=== PATIENT | female | born 1955 | race Caucasian/White ===

== ENCOUNTER 2018-12-06 14:40 | Inpatient (IN) ==
[2018-12-06] MEDS ORDERED: 0.9 % Sodium Chloride 1,000 ML IVC SCH ×2 (23:30→23:57)
--- NOTE | 2018-12-06 23:56 | Internal Med History&Physical ---
Date of Encounter: 12/06/18 Time of Encounter: 23:21 Internal Medicine - H&P: HPI Chief complaint: LE weakness History of present illness: Ms. Burris is a 63 year old female with a past medical history of diabetes, diabetic neuropathy hyperlipidemia and hypertension who initially presented to [facility] with complaints of lower extremity numbness and weakness. Patient states that her symptoms began on the 9 when she felt that she was coming down with something. She will that morning, felt a little off balance and throughout the course of the day and into the following day had 4 episodes of nonbloody nonbilious emesis. She had one episode of loose stools. Since then she reports episodes of feeling lightheaded whenever she would arise. On one episode when she stood up to go to the restroom at a restaurant, she states she felt as if her legs were wobbly and that she did not have full control. She also noted numbness in them well. She had a similar presentation yesterday in which she felt unsteady on her feet and reported numbness in both lower extremities. She feels that her symptoms are aggravated the longer she stands on her feet. Today she reports that she went to get a haircut and after getting up from the chair felt very weak and was uncertain she was able to make it to her car. After she arrived home she called her doctor and [place] who advised her to come into the ED. Patient also feels that she is having difficulty finding words and perioral numbness. Patient denies any headache, blurring vision, fever, chills, chest pain, shortness of breath, abdominal pain. Patient initially presented to [facility] where she was evaluated. Laboratory workup was notable for an elevated hemoglobin and hematocrit, normal white count, normal chemistry and UA. Patient was given 1 mg of lorazepam IV which seemed to help her anxiety. On my assessment patient was lying in bed in no acute distress. She did seem anxious. She continued to complain of lower extremity numbness from her knees down to her feet. No other focal deficits appreciated. Past Med Surg Social Fam HX - Past Medical History Medical history: diabetes, hyperlipidemia, hypertension, other Additional medical history: Elevated LFT's, Elevated ferritin, breast lump, Low potassium, gallstones, gout. Psychiatric history: depression - Past Surgical History Surgical History: hysterectomy, orthopedic, other Additional surgical history: right great toe amputation 2018. right foot hematoma 2018. - Social History Smoking Status: Former smoker Smokeless Tobacco Status: No Alcohol use: none Drug use: none - Family History Brother Adopted: No Family Member Ethnicity: Non- Living Status: Age at : 76 Cause of : kidney failure Hx Family Cardiac Disorders: Yes Hx Family Respiratory Disorders: No Hx Family Cancer: No Hx Family GI Disorders: No Hx Family Genitourinary Disorders: Yes Hx Family Endocrine Disorder: Yes ([place] 2 DM) Hx Family Musculoskeletal Disorders: No Hx Family Neuromuscular Disorders: No Hx Family Neurologic Disorders: No Hx Family HEENT Disorders: No Hx Family Autoimmune Disorders: No Hx Family Reproductive Disorders: No Hx Family Psychosocial Disorders: No Father Adopted: No Family Member Ethnicity: Non- Living Status: Age at : 36 Cause of : myeloma Hx Family Cardiac Disorders: No Hx Family Respiratory Disorders: No Hx Family Cancer: Yes Hx Family GI Disorders: No Hx Family Genitourinary Disorders: No Hx Family Endocrine Disorder: No Hx Family Musculoskeletal Disorders: No Hx Family Neuromuscular Disorders: No Hx Family Neurologic Disorders: No Hx Family HEENT Disorders: No Hx Family Autoimmune Disorders: No Hx Family Reproductive Disorders: No Hx Family Psychosocial Disorders: No Mother Living Status: Age at : 70 Cause of : "scliosiscolongitis" Hx Family Cardiac Disorders: No Hx Family Respiratory Disorders: No Hx Family Cancer: No Hx Family GI Disorders: Yes Hx Family Genitourinary Disorders: No Hx Family Endocrine Disorder: No Hx Family Musculoskeletal Disorders: No Hx Family Neuromuscular Disorders: No Hx Family Neurologic Disorders: No Hx Family HEENT Disorders: No Hx Family Autoimmune Disorders: No Hx Family Reproductive Disorders: No Hx Family Psychosocial Disorders: No Internal Medicine - H&P: Meds FLUoxetine HCl [Prozac] 80 mg PO DAILY 08/29/16 [History] metFORMIN [Glucophage] 500 mg PO BIDWM 08/29/16 [History] Furosemide [Lasix] 20 mg PO DAILY 02/10/18 [History] Glimepiride [Amaryl] 4 mg PO DAILY 02/10/18 [History] lamoTRIgine [Lamictal] 150 mg PO BID 02/10/18 [History] Fluticasone Propionate Nasal [Flonase] 2 spray NS DAILY PRN 07/20/18 [History] Loratadine [Claritin] 10 mg PO DAILY 07/20/18 [History] Montelukast [Singulair] 10 mg PO DAILY 07/20/18 [History] Bupropion HCl [Wellbutrin Xl] 300 mg PO DAILY 07/28/18 [History] Quetiapine Fumarate [Seroquel] 200 mg PO HS 08/03/18 [History] Acetaminophen [Tylenol] 1,000 mg PO Q6HR PRN tablet 08/12/18 [Rx] Losartan [Cozaar] 25 mg PO DAILY tablet 08/12/18 [Rx] Simvastatin [Zocor] 20 mg PO HS tablet 08/12/18 [Rx] Buspirone HCl [Buspar] 30 mg PO BID 08/13/18 [History] Gabapentin [Neurontin] 300 mg PO HS capsule 08/13/18 [Rx] Meclizine HCl [Verticalm] 25 mg PO TID PRN 08/13/18 [History] Omeprazole [PriLOSEC] 40 mg PO DAILY 08/13/18 [History] clonazePAM [Clonazepam] 2 mg PO TID 08/13/18 [History] Allopurinol [Zyloprim 100 MG] 100 mg PO DAILY 12/06/18 [History] Allergy/AdvReac Type Severity Reaction Status Date / Time codeine Allergy Rash Verified 12/06/18 12:10 fentanyl AdvReac Nausea Verified 12/06/18 12:10 All Systems PM: A 10-system review of systems was performed and is negative for pertinent findings except as documented above in the HPI. - Constitutional Constitutional: no chills, no fever(s), no night sweats - EENT Eyes: no change in vision, no discharge, no pain, no photophobia Ears: no ear discharge, no ear pain, no tinnitus Nose, mouth and throat: no dysphagia, no nasal discharge, no neck pain, no sore throat - Cardiovascular Cardiovascular ROS IM: no chest pain, no diaphoresis, no dyspnea, no lightheadedness, no palpitations, no syncope - Respiratory Respiratory: no cough, no dyspnea, no wheezing, no excessive phlegm production - Gastrointestinal Gastrointestinal: no abdominal pain, no diarrhea, no hematemesis, no hematochezia, no melena, no nausea, no vomiting - Genitourinary Genitourinary: no change in urinary stream, no dysuria, no flank pain, no hematuria - Musculoskeletal Musculoskeletal ROS IM: no numbness, no tingling - Integumentary Integumentary IM: no rash, no unusual bruising - Neurological Neurological ROS: no confusion, no convulsions, no focal weakness, no numbness, no tingling, no tremor(s) - Hematologic/Lymphatic Hematologic/Lymphatic: no easy bruising - Constitutional Vitals: Temp Pulse Resp BP Pulse Ox 98.1 F 76 17 123/73 96 12/06/18 23:11 12/06/18 23:11 12/06/18 23:11 12/06/18 23:11 12/06/18 23:11 Exam: General: Alert and oriented 3 lying in bed in no acute distress Skin:Normal color, no rash, no lesions. HEENT:EOM, pupils equal, round and reactive. Cardiovascular:Normal S1 & S2, no rubs, murmurs or gallops. No JVD. Pulse regular. Lungs:Normal breath sounds, no wheezes or crackles. Abdomen:Soft, non-tender, no rigidity. Extremities:No deformity, no edema or tenderness, no joint swelling or clubbing. Amputation of the right first toe. Mild edema of the second toe. Neurological:Normal cognition ; cranial nerves II through XII intact. 4 out of 5 muscle strength in lower extremities; 5 out of 5 in the upper extremities; no evidence of pronator drift. Decreased sensation in the lower extremities below the knees; hyperreflexic Pulses:Carotid and radial pulses normal +2. Rest of the physical exam is non contributory Internal Med - H&P Results - Labs CBC & Chem 7: 12/07/18 04:00 - Assessment and Plan (1) Leg weakness, bilateral Current Visit: No Status: Acute Assessment and plan: Patient reports of lower extremity weakness and unsteady gait. She has 4 out of 5 muscle strength in the lower extremities. Deep tendon reflexes hypereflexic No other focal deficits on physical examination. Patient has a history of isidra betic neuropathy. This may just be a progression of disease the patient states that her blood sugars have been stable. Differential also includes transverse myelitis [place] among others the patient as noted above is hyperreflexic. -We will obtain MRI of the brain and spine. -We will give 1 time stress dose steroids for Transversmyelitis -Neurology Consult. (2) Word finding difficulty Current Visit: Yes Status: Acute Assessment and plan: Patient reports word finding difficulties. Cranial nerves II through XII intact. Etiology unclear. Concern for CVA/TIA. May simply be secondary to anx iety. -We will allow for permissive hypertension in the event this is a stroke. -Neuro checks -We will obtain MRI of the brain in the morning -Echocardiogram/ carotid duplex -Appreciate neurology input (3) Diabetic foot Current Visit: No Status: Acute Assessment and plan: Swelling of the 2nd digit noted. No erythema. Patient was to have follow up appointment with her [employer] tomorrow. -We will obtain x-ray of the foot -Will obtain Podiatry Consult (4) Diabetes mellitus Current Visit: No Status: Chronic Assessment and plan: Blood Glucose checks; Sliding scale insulin Qualifiers: Diabetes mellitus type: type 2 Diabetes mellitus complication detail: with foot ulcer Qualified Code(s): E11.621 - Type 2 diabetes mellitus with foot ulcer; L97.509 - Non-pressure chronic ulcer of other part of unspecified foot with unspecified severity; Z79.4 - correction (current) use of insulin (5) DVT prophylaxis Current Visit: Yes Status: Acute Assessment and plan: Subcutaneous heparin - Time Spent With Patient Total time spent is greater than 50% in coordination of care (as documented) at patient's floor/unit and/or counseling patient:
[2018-12-07] MEDS ORDERED: Fluticasone Propionate Nasal 50 MCG/SPRAY BOTTLE NS PRN (00:02)
[2018-12-07] MEDS ORDERED: *HR* Dextrose 50 % in Water (Syg) 50 ML SYRINGE IVP PRN (00:04)
[2018-12-07] MEDS ORDERED: Dextrose Gel 15 GM/37.5 ML TUBE PO PRN ×2 (00:04)
[2018-12-07] MEDS ORDERED: D5% in Water 1,000 ML IVC PRN (00:04)
[2018-12-07] MEDS ORDERED: 0.9 % Sodium Chloride 500 ML IVC ONE (00:05)
[2018-12-07] MEDS: Insulin LISPRO 300 UNITS/3 ML VIAL SQ SCH ×4 (00:31→17:43)
[2018-12-07] MEDS: clonazePAM 1 MG TABLET PO SCH ×4 (00:41→20:20)
[2018-12-07] MEDS ORDERED: 0.9 % Sodium Chloride 1,000 ML IVC SCH (00:45)
[2018-12-07 00:51] LABS: Bilirubin,Urine Small (Negative); Blood,Urine Negative (Negative); Clarity,Urine Clear (Clear); Color,Urine Yellow (Yellow); Glucose,Urine (UA) Normal (Normal); Ketones,Urine Trace mg/dL (Negative); Leukocyte Esterase,Urine Small (Negative); Nitrite,Urine Negative (Negative); PH,Urine 6.5 pH Units (5.0-8.0); Protein,Urine Trace mg/dL (Neg-Trace); Specific Gravity,Urine 1.025 (1.010-1.025); Urobilinogen,Urine Normal (Normal)
[2018-12-07 00:53] LABS: Bacteria,Urine None Seen per hpf (None-Few); Hyaline Casts,Urine None Seen per lpf (None-Few); Squamous Epithelial Cell,Urine Many per lpf (None-Few)
[2018-12-07] MEDS: *HR* Heparin 5,000 UNIT/ML VIAL SQ SCH ×4 (01:37→21:57)
[2018-12-07] MEDS ORDERED: Naloxone 0.4 MG/ML INJ IVP PRN (03:24)
[2018-12-07 04:43] LABS: INR 1.3; Prothrombin Time 14.1 Seconds (9.4-12.1)
[2018-12-07 04:46] LABS: Activated Partial Thrombo Time 33.2 Seconds (26.0-36.0)
[2018-12-07 04:56] LABS: Alanine Aminotransferase 14 Units/L (7-52); Alkaline Phosphatase 48 Units/L (34-104); Aspartate Amino Transferase 13 Units/L (13-39); BUN/Creatinine Ratio 19 (6-26); Bilirubin,Total 0.6 mg/dL (0.3-1.0); Blood Urea Nitrogen 16 mg/dL (8-23); Calcium 9.3 mg/dL (8.6-10.3); Carbon Dioxide 26 mEq/L (23-29); Chloride 107 mEq/L (98-107); Chol/HDL Ratio 4.1 (0-4.9); Cholesterol 124 mg/dL (< 200); Glucose 88 mg/dL (70-105); HDL Cholesterol 30 mg/dL (40-59); LDL Cholesterol,Calculated 63 mg/dL (0-99); LDL Cholesterol,Direct 70 mg/dL (75-193); Osmolality,Calculated 297 (280-300); Sodium 143 mEq/L (136-145); Triglycerides 153 mg/dL (< 150); Troponin I < 0.03 ng/mL (< 0.04); eGFR For Non-African Americans > 60 (> 60)
[2018-12-07] MEDS ORDERED: Ondansetron 4 MG/2 ML VIAL IVP PRN (05:46)
[2018-12-07] MEDS ORDERED: Ondansetron 4 MG/2 ML VIAL IVP SCH (06:00)
[2018-12-07] MEDS ORDERED: Gadolinium Contrast Agent (WT Based) IV PRN (07:12)
[2018-12-07 07:25] LABS: Basophils % 0.5 %; Eosinophils # 0.2 K/mcL (0.0-0.6); Eosinophils % 2.3 %; Hematocrit 43.9 % (35.3-44.9); Hemoglobin 14.2 g/dL (11.5-15.4); Immature Granulocytes % 0.3 % (0-4); Lymphocytes # 3.5 K/mcL (0.6-4.6); Lymphocytes % 52.5 %; Mean Corpuscular HGB Conc 32.3 g/dL (31.6-35.5); Mean Corpuscular Hemoglobin 30.8 pg (28.0-33.3); Mean Corpuscular Volume 95.2 fL (83.0-100.0); Monocytes # 0.5 K/mcL (0.0-1.3); Monocytes % 7.3 %; Neutrophils # 2.4 K/mcL (1.6-8.9); Platelet Count 111 K/mcL (140-400); Red Blood Count 4.61 M/mcL (3.82-4.97); Red Cell Distribution Width 13.7 % (11.5-14.5); Segmented Neutrophils % 37.1 %
--- NOTE | 2018-12-07 08:56 | Neurology - Consult Note ---
<Familia Reyes - Last Filed: 12/07/18 15:19> Date of Encounter: 12/07/18 Time of Encounter: 09:50 Assessment and Plan (1) Leg weakness, bilateral Current Visit: Yes Status: Acute - Unclear etiology at this time - Leading differential at this time includes spinal cord compression, GBS, TIA - Also suspect that there is a large anxiety component potentially exacerbating symptoms. - Neuro exam reveal bilateral weakness with hyperreflexia and mildly decreased sensation below knees - Also known diabetic with right great toe amputation in July of 2018. Well healed. May be contributing to unsteady gait - Given 1 dose of stress dose steroids per H&P, however not observed on MAR - MRI of head, thoracic, lumbar spine ordered, pending-- preliminary results show no acute process in brain, stenosis of lumbar and thoracic spine with no evidence of myelitis. Plan - Will await results of MRI. Will order Cervical MRI as well. - Do not have urgent need for LP at this time - Another possibility is medication induced, patient is on multiple neurotransmitter regulating medications and early serotonin syndrome may also be a possibility. Recommend psychiatric consult to further evaluate. - Continue supportive care - Consider steroids, however avoid at this time as it may exacerbate her anxiety (2) Word finding difficulty Current Visit: Yes Status: Acute - Possible TIA vs anxiety - Symptoms have resolved at this time - MRI pending - Will continue to monitor and await MRI results (3) Diabetes mellitus Current Visit: Yes Status: Chronic - Very well controlled - A1c of 4.8% on this visit - S/p toe amputation - Unlikely but possible contribution to higher risk for TIA Qualifiers: Diabetes mellitus type: type 2 Diabetes mellitus engineer station mainline insulin use: without care home use Diabetes mellitus complication status: with skin complications Diabetes mellitus complication detail: with foot ulcer Qualified Code(s): E11.621 - Type 2 diabetes mellitus with foot ulcer; L97.509 - Non-pressure chronic ulcer of other part of unspecified foot with unspecified severity (4) Hypertension Current Visit: Yes Status: Chronic Chronic Currently 137/82 Recommend against starting antihypertensives at this time the setting of possible acute TIA Qualifiers: Hypertension type: essential hypertension Qualified Code(s): I10 - Essential (primary) hypertension (5) Anxiety Current Visit: Yes Status: Chronic - Patient reports poorly controlled anxiety which is exacerbated with this most recent health scare - Home medications including Wellbutrin, BuSpar, Prozac, Lamictal, clonazepam, Seroquel - Suspect that this may possibly contributing to some of her symptoms however will also have to rule out organic etiologies - Management as above and per primary team History of Present Illness Chief complaint: Bilateral lower extremity weakness, unsteadiness HPI: Ms. Burris is a 63 year old female with past medical history of diabetes, hyperlipidemia, hypertension who presented to the emergency room in [place] with a complaint of bilateral lower extremity weakness and numbness 4 days. Patient stated that on of last week she began to experience progressively onset and worsening lower extremity weakness and unsteadiness in her gait. She describes it as a "rubber band "feeling in both of her legs. She is never experienced symptoms like this in the past. She denies any upper ex tremity symptoms at this time. She does admit to associated numbness without any evidence of tingling or pain. She denies any trauma. She denies any symptoms of chest pains or difficulty breathing but does admit to feeling nauseated with multiple episodes of vomiting during this time. She has no other sick contacts. She is also noted some difficulty in her word finding starting on Thursday but denies any difficulty slurred speech to me this morning. She states that she is very anxious at this time as she has a lot of good things going on for her with her family and is very nervous about what the symptoms might mean. In the [place] emergency room, vital signs were initially significant for a blood pressure of 149/94, otherwise within normal limits. Laboratory results showed probable hemoconcentration with resolution after fluids. Lactic acid was mildly elevated at 3.4. Urinalysis was benign. Chest x-ray was obtained and showed no acute process. MRI of the head, thoracic and lumbar spine have been ordered and are pending as well as echocardiogram and carotid Dopplers. Neurology was consulted on 12/06/18 for concerns of bilateral lower extremity weakness. Today during interview, patient continues to experience weakness and states that her walking his, increasingly unsteady since onset. She continues to have difficulty with muscle weakness in her lower extremities. Also, she does become tearful during interview with anxiety about her health. Past Med Surg Social Fam HX - Past Medical History Medical history: diabetes, hyperlipidemia, hypertension, other Additional medical history: Elevated LFT's, Elevated ferritin, breast lump, Low potassium, gallstones, gout. Psychiatric history: depression - Past Surgical History Surgical History: hysterectomy, orthopedic, other Additional surgical history: right great toe amputation 2018. right foot hematoma 2018. - Social History Smoking Status: Former smoker Smokeless Tobacco Status: No Alcohol use: none Drug use: none - Family History Brother Adopted: No Family Member Ethnicity: Non- Living Status: Age at : 76 Cause of : kidney failure Hx Family Cardiac Disorders: Yes Hx Family Respiratory Disorders: No Hx Family Cancer: No Hx Family GI Disorders: No Hx Family Genitourinary Disorders: Yes Hx Family Endocrine Disorder: Yes (Trung 2 DM) Hx Family Musculoskeletal Disorders: No Hx Family Neuromuscular Disorders: No Hx Family Neurologic Disorders: No Hx Family HEENT Disorders: No Hx Family Autoimmune Disorders: No Hx Family Reproductive Disorders: No Hx Family Psychosocial Disorders: No Father Adopted: No Family Member Ethnicity: Non- Living Status: Age at : 36 Cause of : myeloma Hx Family Cardiac Disorders: No Hx Family Respiratory Disorders: No Hx Family Cancer: Yes Hx Family GI Disorders: No Hx Family Genitourinary Disorders: No Hx Family Endocrine Disorder: No Hx Family Musculoskeletal Disorders: No Hx Family Neuromuscular Disorders: No Hx Family Neurologic Disorders: No Hx Family HEENT Disorders: No Hx Family Autoimmune Disorders: No Hx Family Reproductive Disorders: No Hx Family Psychosocial Disorders: No Mother Living Status: Age at : 70 Cause of : "scliosiscolongitis" Hx Family Cardiac Disorders: No Hx Family Respiratory Disorders: No Hx Family Cancer: No Hx Family GI Disorders: Yes Hx Family Genitourinary Disorders: No Hx Family Endocrine Disorder: No Hx Family Musculoskeletal Disorders: No Hx Family Neuromuscular Disorders: No Hx Family Neurologic Disorders: No Hx Family HEENT Disorders: No Hx Family Autoimmune Disorders: No Hx Family Reproductive Disorders: No Hx Family Psychosocial Disorders: No Medications and Allergies FLUoxetine HCl [Prozac] 80 mg PO DAILY 08/29/16 [History] metFORMIN [Glucophage] 500 mg PO BIDWM 08/29/16 [History] Furosemide [Lasix] 20 mg PO DAILY 02/10/18 [History] Glimepiride [Amaryl] 4 mg PO DAILY 02/10/18 [History] lamoTRIgine [Lamictal] 150 mg PO BID 02/10/18 [History] Fluticasone Propionate Nasal [Flonase] 2 spray NS DAILY PRN 07/20/18 [History] Loratadine [Claritin] 10 mg PO DAILY 07/20/18 [History] Montelukast [Singulair] 10 mg PO DAILY 07/20/18 [History] Bupropion HCl [Wellbutrin Xl] 300 mg PO DAILY 07/28/18 [History] Quetiapine Fumarate [Seroquel] 200 mg PO HS 08/03/18 [History] Acetaminophen [Tylenol] 1,000 mg PO Q6HR PRN tablet 08/12/18 [Rx] Losartan [Cozaar] 25 mg PO DAILY tablet 08/12/18 [Rx] Simvastatin [Zocor] 20 mg PO HS tablet 08/12/18 [Rx] Buspirone HCl [Buspar] 30 mg PO BID 08/13/18 [History] Gabapentin [Neurontin] 300 mg PO HS capsule 08/13/18 [Rx] Meclizine HCl [Verticalm] 25 mg PO TID PRN 08/13/18 [History] Omeprazole [PriLOSEC] 40 mg PO DAILY 08/13/18 [History] clonazePAM [Clonazepam] 2 mg PO TID 08/13/18 [History] Allopurinol [Zyloprim 100 MG] 100 mg PO DAILY 12/06/18 [History] Allergy/AdvReac Type Severity Reaction Status Date / Time codeine Allergy Rash Verified 12/06/18 12:10 fentanyl AdvReac Nausea Verified 12/06/18 12:10 All Systems: The remainder of the systems were reviewed and are negative Review of Systems: - Constitutional: Denies fevers, chills, weight loss, generalized fatigue - Head/Neck: Denies LOCK, neck stiffness - EENT: Denies vision changes/blurriness, rhinorrhea, congestion, sore throat, odynaphagia - CVS: Denies chest pain, palpitations, NEVES, orthopnea, edema, PND, - Pulm: Denies SOB, cough, sputum, - GI: Admits to nausea, vomiting. Denies abdominal pain, anorexia, diarrhea, constipation, melena - : Denies dysuria, increased frequency, urgency, hematuria, - Skin: Denies rashes, ulcers, color changes, - Neuro: Admits to lower shortly weakness, numbness. Denies LOCK, paresthesias, ataxia, Physical Examination - Vital Signs Vital Signs: Initial Vital Signs Temp Pulse Resp BP Pulse Ox 98.2 F 80 17 135/75 96 12/06/18 20:04 12/06/18 20:04 12/06/18 20:04 12/06/18 20:04 12/06/18 20:04 - Constitutional General appearance: comfortable (anxious appearing) - Neurologic Sensorimotor examination: intact Motor examination - right side: 4/5: deltoids, biceps, triceps, senior report developer, tibialis Anterior, quadriceps, 5/5: plantarflexion Motor examination - left side: 4/5: deltoids, biceps, triceps, hip flexors, senior report developer, quadriceps, tibialis Anterior, 5/5: plantarflexion Detailed sensory examination: intact Reflexes: Biceps: 2+, Patella: 3+ Mental Status Examination: awake, alert, oriented to person, oriented to place, oriented to time, follows commands appropriately, answers questions appropriately Cranial nerve examination: PERRL, EOMI, sensory to face intact, mastication intact, no facial asymmetry is present, no dysarthria, hearing is intact symmetrically, soft palate elevates bilaterally upon phonation, flexes SCM and trapezius muscles symmetrically with full power, tongue protrudes midline, no atrophy or facial fasiculations present Cerebellar examination: performs finger to nose and heel to scott symmetrically without ataxia Results - Laboratory Findings CBC and BMP: 12/07/18 04:00 12/07/18 04:00 Abnormal lab findings: Abnormal lab results Plt Count 111 K/mcL (140-400) L 12/07/18 04:00 PT 14.1 Seconds (9.4-12.1) H 12/07/18 04:00 POC Glucose 108 mg/dL (70-99) H 12/07/18 00:20 Serum Total Protein 6.0 g/dL (6.4-8.9) L 12/07/18 04:00 Globulin 2.0 g/dL (2.4-3.5) L 12/07/18 04:00 Triglycerides 153 mg/dL (< 150) H 12/07/18 04:00 LDL Cholesterol Measurd 70 mg/dL (75-193) L 12/07/18 04:00 VLDL Cholesterol, Calc 31 mg/dL (< 31) H 12/07/18 04:00 HDL Cholesterol 30 mg/dL (40-59) L 12/07/18 04:00 Urine Ketones Trace mg/dL (Negative) H 12/07/18 00:28 Urine Bilirubin Small (Negative) H 12/07/18 00:28 Ur Leukocyte Esterase Small (Negative) H 12/07/18 00:28 Urine Microscopic RBC 3-5 per hpf (0-3) H 12/07/18 00:28 Urine Microscopic WBC 5-15 per hpf (0-3) H 12/07/18 00:28 Ur Squamous Epith Cells Many per lpf (None-Few) H 12/07/18 00:28 Consult Discharge Plan - Plan Referrals: Carlos Juares DPM [Partnered Physician] - 12/16/18 4:00 pm Kia Dunlap CNP [Primary Care Provider] - 12/16/18 4:00 pm () <Douglas Covington - Last Filed: 12/07/18 17:58> Date of Encounter: 12/07/18 Assessment and Plan (1) Leg weakness, bilateral Current Visit: Yes Status: Acute I have personally performed a [id number] assessment of the patient and have reviewed the PA/NAILHEAD SETTER note. My impressions are as follows: Aside from the hyperreflexia, patient's neurologic examination is essentially normal. MRI scan of the brain is negative therefore we are not dealing with an ischemic event or demyelination. I would like to rule out the possibility of a transverse myelitis in the cervical spine. However thoracic MRI was also negative. I believe the GBS is less of a concern primarily because the patient does have reflexes present. I do believe that there could possibly be an anxiety component. Particularly since she has normal strength in the nonfocal exam. She denies any pain. Further recommendations will be made after the cervical spine MRIs been completed. Patient is on a host of different mood stabilizers and I am concerned that perhaps there may be interactions amongst them that is resulting in this presentation or perhaps even the stabilization of her anxiety. I agree with psychiatric consultation. History of Present Illness HPI: The chart was reviewed, the patient was seen and examined independently. I have personally performed a [id number] assessment of the patient and have reviewed the PA/NAILHEAD SETTER note. My impressions are as follows: Ms. Burris is a 63 year old female who is seen for neurologic consultation secondary to complaints of bilateral lower extremity weakness. The case was discussed with the neurology resident. I agree with the history of present illness as presented above. All Systems: The remainder of the systems were reviewed and are negative Review of Systems: The balance of the systems review is negative. Physical Examination - Vital Signs Vital Signs: Initial Vital Signs Temp Pulse Resp BP Pulse Ox 98.2 F 80 17 135/75 96 12/06/18 20:04 12/06/18 20:04 12/06/18 20:04 12/06/18 20:04 12/06/18 20:04 - Exam Exam: General Examination: *CONSTITUTIONAL: normal *GENERAL APPEARANCE OF PATIENT appears healthy and well groomed *EYES: pupils equal, round, reactive to light and accommodation, conjunctiva clear without masses or ulcerations, fundi normal. *CARDIOVASCULAR no peripheral edema, distal temperature normal, dorsalis pedis pulses normal. Refer to vital signs Musculoskeletal: *GAIT AND STATION normal, with normal Romberg testing, no abnormalities such as broad base gait or spasticity *ASSESSMENT OF MUSCLE STRENGTH IN THE UPPER AND LOWER EXTREMITIES deltoid, bicep, tricep, senior report developer strength, hip flexors ,anterior tibialis, dorsoflexion of the foot normal. *MUSCLE TONE IN THE UPPER AND LOWER EXTREMITIES normal. No abnormal movements, fasciculations or atrophy identified. Neurological: *ORIENTATION to time and place *RECURRENT AND REMOTE MEMORY intact *ATTENTION AND CONCENTRATION are normal *LANGUAGE FUNCTION no significant aphasia or dysarthia was noted. *FUND OF KNOWLEDGE aware of current events, past history, vocabulary *MENTAL attention span and concentration normal. Patient does however seem to be very anxious. *CN II optic fundi were normal, no papilledema noted. *CN III,IV, PERRLA extraocular eye movements were full, no nystagmus and no ptosis noted. *CN V shows normal sensation and jaw opens symmetrically. *CN VII shows normal facial movement symmetrically, upper and lower bilaterally. *CN VIII shows no significant hearing loss on examination in the office. *CN IX,,X palate elevated symmetrically and normal gag reflex was noted. *CN XI normal strength in the sternocleidomastoid muscles, symmetrical shoulder shrugging. *CN XII tongue protruded in the midline, with normal strength and movement. *SENSORY EXAMINATION pinprick sensation intact, and light touch(vibration sense). *REFLEXES: deep tendon reflexes were increased throughout. 3/4 of both upper extremities in all reflexes, the right patellar reflex was 3+, the left patella reflexes cloniform. No Babinski or clonus are present. *CEREBELLAR TESTING normal finger to nose, heel/knee/scott *PAIN LEVEL -0 Results - Laboratory Findings CBC and BMP: 12/07/18 04:00 12/07/18 04:00 Abnormal lab findings: Abnormal lab results Plt Count 111 K/mcL (140-400) L 12/07/18 04:00 PT 14.1 Seconds (9.4-12.1) H 12/07/18 04:00 Serum Total Protein 6.0 g/dL (6.4-8.9) L 12/07/18 04:00 Globulin 2.0 g/dL (2.4-3.5) L 12/07/18 04:00 Triglycerides 153 mg/dL (< 150) H 12/07/18 04:00 LDL Cholesterol Measurd 70 mg/dL (75-193) L 12/07/18 04:00 VLDL Cholesterol, Calc 31 mg/dL (< 31) H 12/07/18 04:00 HDL Cholesterol 30 mg/dL (40-59) L 12/07/18 04:00 Urine Ketones Trace mg/dL (Negative) H 12/07/18 00:28 Urine Bilirubin Small (Negative) H 12/07/18 00:28 Ur Leukocyte Esterase Small (Negative) H 12/07/18 00:28 Urine Microscopic RBC 3-5 per hpf (0-3) H 12/07/18 00:28 Urine Microscopic WBC 5-15 per hpf (0-3) H 12/07/18 00:28 Ur Squamous Epith Cells Many per lpf (None-Few) H 12/07/18 00:28
[2018-12-07] MEDS: lamoTRIgine 100 MG TABLET PO SCH ×2 (09:14→20:19)
[2018-12-07] MEDS: FLUoxetine 20 MG CAPSULE PO SCH (09:15)
[2018-12-07 09:27] LABS: Estimated Average Glucose 91 mg/dl; Hemoglobin A1C 4.8 %
--- NOTE | 2018-12-07 13:21 | Internal Med Progress Note ---
Hospitalist Progress Note - Encounter Date of Encounter: 12/07/18 Time of Encounter: 13:20 - Subjective Interval History: Patient was seen and examined at bedside denies any pain or discomfort at this time. Discussed treatment plan the patient verbalized understanding - Exam Vitals: Temp Pulse Resp BP Pulse Ox 97.5 F L 80 16 145/87 95 12/07/18 11:53 12/07/18 11:53 12/07/18 11:53 12/07/18 11:53 12/07/18 11:53 Exam: General: Alert and oriented 3 lying in bed in no acute distress Skin:Normal color, no rash, no lesions. HEENT:EOM, pupils equal, round and reactive. Cardiovascular:Normal S1 & S2, no rubs, murmurs or gallops. No JVD. Pulse regular. Lungs:Normal breath sounds, no wheezes or crackles. Abdomen:Soft, non-tender, no rigidity. Extremities:No deformity, no edema or tenderness, no joint swelling or clubbing. Amputation of the right first toe. Mild edema of the second toe. Neurological:Normal cognition ; cranial nerves II through XII intact. 4 out of 5 muscle strength in lower extremities; 5 out of 5 in the upper extremities; no evidence of pronator drift. Decreased sensation in the lower extremities below the knees; hyperreflexic Pulses:Carotid and radial pulses normal +2. Rest of the physical exam is non contributory - Assessment and Plan (1) Diabetic foot Current Visit: No Status: Acute Assessment and Plan: Swelling of the right 2nd digit noted. No erythema. She did have great toe amputated and July and has been doing well she does not recall any injury Patient was to have follow up appointment with her Contract Specialist 12/07/2018 -We will obtain x-ray of the foot - Podiatry Consult as needed pending x-ray of foot (2) Diabetes mellitus Current Visit: Yes Status: Chronic Assessment and Plan: Blood Glucose checks; Sliding scale insulin (3) Leg weakness, bilateral Current Visit: Yes Status: Acute Assessment and Plan: Patient reports of lower extremity weakness and unsteady gait. She has 4 out of 5 muscle strength in the lower extremities. Deep tendon reflexes hypereflexic No other focal deficits on physical examination. Patient has a history of diabetic neuropathy. This may just be a progression of disease the patient states that her blood sugars have been stable. Differential also includes transverse myelitis [place] among others the patient as noted above is hyperreflexic Lumbar spine MRI IMPRESSION: 1. Mild spinal canal stenosis and mild right neural foraminal narrowing at L3-4 secondary to a disc bulge, facet arthropathy and thickening of the ligamentum flavum. 2. Mild to moderate bilateral neural foraminal narrowing at L4-5 and L5-S1, as described above. 3. No abnormal enhancement. Thoracic spine MRI IMPRESSION: Mild spinal canal stenosis at T7-8 secondary to a focal 2 mm central disc protrusion. Otherwise, unremarkable MRI of the thoracic spine Brain MRI IMPRESSION: No acute intracranial abnormality. Echo Impressions: LVEF 55-60%. Normal LV chamber size, wall thickness and function. Normal left ventricular diastolic function. Mildly dilated right ventricle with normal function. Poor quality agitated saline contrast study. No significant valvular dysfunction. No evidence of pulmonary hypertension. -Neurology Consult. PT/OT consult (4) Word finding difficulty Current Visit: Yes Status: Acute Assessment and Plan: Patient reports word finding difficulties. Cranial nerves II through XII intact. Etiology unclear. Concern for CVA/TIA. May simply be secondary to anxiety. -We will allow for permissive hypertension in the event this is a stroke. -Neuro checks -Brain MRI with no acute intracranial abnormalities -Echocardiogram/ carotid duplex Echo Impressions: LVEF 55-60%. Normal LV chamber size, wall thickness and function. Normal left ventricular diastolic function. Mildly dilated right ventricle with normal function. Poor quality agitated saline contrast study. No significant valvular dysfunction. No evidence of pulmonary hypertension. -Appreciate neurology input (5) DVT prophylaxis Current Visit: Yes Status: Acute Assessment and Plan: Subcutaneous heparin - Time Spent with Patient Total time spent is greater than 50% in coordination of care (as documented) at patient's floor/unit and/or counseling patient: Internal Medicine: Result - Labs CBC & Chem 7: 12/07/18 04:00 12/07/18 04:00 Labs: Short CBC 12/07/18 Range/Units 04:00 WBC 6.6 (4.3-11.1) K/mcL Hgb 14.2 D (11.5-15.4) g/dL Hct 43.9 (35.3-44.9) % Plt Count 111 L (140-400) K/mcL Neutrophils # 2.4 (1.6-8.9) K/mcL BMP 04/16/19 04:00 Sodium 143 Potassium 4.0 Chloride 107 Carbon Dioxide 26 BUN 16 Creatinine 0.85 Glucose 88 Calcium 9.3 Cardiac Enzymes 12/07/18 Range/Units 04:00 Troponin I < 0.03 (< 0.04) ng/mL Liver Function 12/07/18 Range/Units 04:00 Total Bilirubin 0.6 (0.3-1.0) mg/dL AST 13 (13-39) Units/L ALT 14 (7-52) Units/L Alkaline Phosphatase 48 (34-104) Units/L Albumin 4.0 (3.5-5.7) g/dL Urine 12/07/18 Range/Units 00:28 Urine Color Yellow (Yellow) Urine Clarity Clear (Clear) Urine pH 6.5 (5.0-8.0) pH Units Ur Specific Melvin 1.025 (1.010-1.025) Urine Protein Trace (Neg-Trace) mg/dL Urine Glucose (UA) Normal (Normal) mg/dL - ABG Interpretation ABG results: PT/INR, D-dimer PT 14.1 Seconds (9.4-12.1) H 12/07/18 04:00 - Impressions Impressions Brain MRI 12/07/18 07:12 IMPRESSION: No acute intracranial abnormality. D/ / Hawk Lemon MD / Hawk Lemon MD Interpreting Provider: Hawk Lemon MD Lumbar Spine MRI 12/07/18 07:12 IMPRESSION: 1. Mild spinal canal stenosis and mild right neural foraminal narrowing at L3-4 secondary to a disc bulge, facet arthropathy and thickening of the ligamentum flavum. 2. Mild to moderate bilateral neural foraminal narrowing at L4-5 and L5-S1, as described above. 3. No abnormal enhancement. D/ / 12/07/2018 11:42:19 Jake Heath MD / [facility] Interpreting Provider: Jake Heath MD Thoracic Spine MRI 12/07/18 07:12 IMPRESSION: Mild spinal canal stenosis at T7-8 secondary to a focal 2 mm central disc protrusion. Otherwise, unremarkable MRI of the thoracic spine. D/ / 12/07/2018 11:32:43 Jake Heath MD / [facility] Interpreting Provider: Jake Heath MD Consult Discharge Plan - Plan Referrals: Carlos Juares DPM [Partnered Physician] - 12/16/18 4:00 pm Kia Dunlap CNP [Primary Care Provider] - 12/16/18 4:00 pm () (2) Diabetes mellitus Qualifiers: Diabetes mellitus type: type 2 Diabetes mellitus chcf insulin use: without terminal system operator use Diabetes mellitus complication status: with skin complications Diabetes mellitus complication detail: with foot ulcer Qualified Code(s): E11.621 - Type 2 diabetes mellitus with foot ulcer; L97.509 - Non- pressure chronic ulcer of other part of unspecified foot with unspecified severity
[2018-12-08 04:08] LABS: Immature Granulocytes % 0.2 % (0-4); Mean Corpuscular Volume 95.4 fL (83.0-100.0); Mean Platelet Volume 11.3 fL (9.4-12.4)
[2018-12-08 04:10] LABS: Basophils % 0.7 %; Eosinophils # 0.1 K/mcL (0.0-0.6); Eosinophils % 2.4 %; Hematocrit 43.7 % (35.3-44.9); Hemoglobin 13.9 g/dL (11.5-15.4); Immature Platelets 4.3 % (1.1-6.1); Lymphocytes # 2.9 K/mcL (0.6-4.6); Lymphocytes % 54.7 %; Mean Corpuscular HGB Conc 31.8 g/dL (31.6-35.5); Mean Corpuscular Hemoglobin 30.3 pg (28.0-33.3); Monocytes # 0.4 K/mcL (0.0-1.3); Monocytes % 6.7 %; Neutrophils # 1.9 K/mcL (1.6-8.9); Red Blood Count 4.58 M/mcL (3.82-4.97); Red Cell Distribution Width 13.4 % (11.5-14.5); Segmented Neutrophils % 35.3 %
[2018-12-08 04:20] LABS: BUN/Creatinine Ratio 19 (6-26); Blood Urea Nitrogen 15 mg/dL (8-23); Calcium 9.2 mg/dL (8.6-10.3); Carbon Dioxide 25 mEq/L (23-29); Chloride 108 mEq/L (98-107); Glucose 115 mg/dL (70-105); Osmolality,Calculated 294 (280-300); Potassium 3.6 mEq/L (3.5-5.1); Sodium 141 mEq/L (136-145); eGFR For Non-African Americans > 60 (> 60)
[2018-12-08 04:21] LABS: Platelet Count 84 K/mcL (140-400)
[2018-12-08] MEDS: *HR* Heparin 5,000 UNIT/ML VIAL SQ SCH ×3 (06:13→20:51)
[2018-12-08] MEDS: Insulin LISPRO 300 UNITS/3 ML VIAL SQ SCH ×3 (08:53→15:30)
--- NOTE | 2018-12-08 08:57 | Neurology Progress Note ---
<Familia Reyes - Last Filed: 12/08/18 13:06> Date of Encounter: 12/08/18 Time of Encounter: 08:57 Assessment and Plan (1) Leg weakness, bilateral Current Visit: Yes Status: Acute - Unclear etiology at this time - Leading differential at this time includes spinal cord compression, GBS, TIA - Also suspect that there is a large anxiety component potentially exacerbating symptoms. - Neuro exam reveal bilateral weakness with hyperreflexia and mildly decreased sensation below knees - Also known diabetic with right great toe amputation in July of 2018. Well healed. May be contributing to unsteady gait - Given 1 dose of stress dose steroids per H&P, however not observed on MAR - MRI of head, thoracic, lumbar spine obtained: results show no acute process in brain, stenosis of lumbar and thoracic spine with no evidence of myelitis. - MRI cervical also obtained, again shows multilevel spinal stenosis, severe in C5-6 Plan - At this time, there is low suspicion for transverse myelitis and no MRI findings correlate. Patient's weakness appear to be imporving. - Do not have urgent need for LP at this time - Another possibility is medication induced, patient is on multiple neurotransmitter regulating medications and early serotonin syndrome may also be a possibility. Recommend psychiatric consult to further evaluate. - Continue supportive care - Ms. Burris is doing well and do not suspect neurologic etiology. May be a result of viral illness and dehydration to which the patient admits to. Neurology will sign off at this time. Please do not hesitate to call if questions or concerns or for re-evaluation. (2) Word finding difficulty Current Visit: Yes Status: Acute - Suspect anxiety related - Symptoms have resolved at this time - MRI negative (3) Diabetes mellitus Current Visit: Yes Status: Chronic - Very well controlled - A1c of 4.8% on this visit - S/p toe amputation - Unlikely but possible contribution to higher risk for TIA Qualifiers: Diabetes mellitus type: type 2 Diabetes mellitus nursing home insulin use: without nursing home use Diabetes mellitus complication status: with skin complications Diabetes mellitus complication detail: with foot ulcer Qualified Code(s): E11.621 - Type 2 diabetes mellitus with foot ulcer; L97.509 - Non-pressure chronic ulcer of other part of unspecified foot with unspecified severity (4) Hypertension Current Visit: Yes Status: Chronic chronic, well controlled Qualifiers: Hypertension type: essential hypertension Qualified Code(s): I10 - Essential (primary) hypertension (5) Anxiety Current Visit: Yes Status: Chronic - Patient reports poorly controlled anxiety which is exacerbated with this most recent health scare - Home medications including Wellbutrin, BuSpar, Prozac, Lamictal, clonazepam, Seroquel - Suspect that this may possibly contributing to some of her symptoms - Management as above and per primary team Subjective Principal diagnosis: Weakness Interval history: Patient was seen and examined at bedside this morning. She states that overall she may feel a little bit better from yesterday. She has walked to the bathroom without issue but has notices getting weaker the longer she stands. Denies headache today, neck stiffness or pain. Nausea still present but mild. No vomiting. Objective - Constitutional Vitals: Temp Pulse Resp BP Pulse Ox 98.0 F 77 16 121/76 96 12/08/18 06:33 12/08/18 06:33 12/08/18 06:33 12/08/18 06:33 12/08/18 06:33 General appearance: Present: cooperative, A&O X 3, pleasant, answers questions appropriately - Head Head exam: Present: atraumatic, normal inspection, normocephalic - Eye Eye exam: Present: EOMI, PERRL - Extremities Exam Extremities exam: Present: full ROM - Neurological Exam Sensorimotor examination: Present: intact Motor examination - right side: 4/5: quadriceps, 5/5: deltoids, biceps, triceps, improvement coordinator, hip flexors, tibialis Anterior, toe extension (EHL), plantarflexion Motor examination - left side: 4/5: quadriceps, 5/5: deltoids, biceps, triceps, hip flexors, improvement coordinator, tibialis Anterior, plantarflexion Sensation intact: Present: intact Reflexes: Biceps: 2+, Patella: 3+ Mental Status Examination: Present: awake, alert, oriented to person, oriented to place, oriented to time, follows commands appropriately, answers questions appropriately Cranial nerve examination: Present: PERRL, EOMI, sensory to face intact, mastication intact, no facial asymmetry is present, no dysarthria, hearing is intact symmetrically, soft palate elevates bilaterally upon phonation, flexes SCM and trapezius muscles symmetrically with full power, tongue protrudes midline, no atrophy or facial fasiculations present Cerebellar examination: Present: performs finger to nose and heel to scott symmetrically without ataxia Results - Laboratory Findings CBC and BMP: 12/08/18 03:30 12/08/18 03:30 Abnormal lab findings: Abnormal lab results Plt Count 84 K/mcL (140-400) L 12/08/18 03:30 PT 14.1 Seconds (9.4-12.1) H 12/07/18 04:00 Chloride 108 mEq/L (98-107) H 12/08/18 03:30 Glucose 115 mg/dL (70-105) H 12/08/18 03:30 POC Glucose 108 mg/dL (70-99) H 12/07/18 20:44 Serum Total Protein 6.0 g/dL (6.4-8.9) L 12/07/18 04:00 Globulin 2.0 g/dL (2.4-3.5) L 12/07/18 04:00 Triglycerides 153 mg/dL (< 150) H 12/07/18 04:00 LDL Cholesterol Measurd 70 mg/dL (75-193) L 12/07/18 04:00 VLDL Cholesterol, Calc 31 mg/dL (< 31) H 12/07/18 04:00 HDL Cholesterol 30 mg/dL (40-59) L 12/07/18 04:00 Urine Ketones Trace mg/dL (Negative) H 12/07/18 00:28 Urine Bilirubin Small (Negative) H 12/07/18 00:28 Ur Leukocyte Esterase Small (Negative) H 12/07/18 00:28 Urine Microscopic RBC 3-5 per hpf (0-3) H 12/07/18 00:28 Urine Microscopic WBC 5-15 per hpf (0-3) H 12/07/18 00:28 Ur Squamous Epith Cells Many per lpf (None-Few) H 12/07/18 00:28 Consult Discharge Plan - Plan Additional Instructions: Home health has been set up through [facility]. They will contact you to set up a date and time to complete admission. If you need to contact them, please call #[phone] or #[phone]. Referrals: Carlos Juares DPM [Partnered Physician] - 12/16/18 4:00 pm Kia Dunlap, NGA [Primary Care Provider] - 12/16/18 4:00 pm () <Douglas Covington Myriam - Last Filed: 12/08/18 18:09> Date of Encounter: 12/08/18 Time of Encounter: 07:30 Assessment and Plan (1) Leg weakness, bilateral Current Visit: Yes Status: Acute I have personally performed a [id number] assessment of the patient and have reviewed the PA/PENS AND PENCILS DIPPER note. My impressions are as follows: At this point I am unable to identify any specific neurologic etiology to explain her presentation. I believe that her hyperreflexia is due to her anxious demeanor. I do not feel that GBS is in the differential. I would however recommend psychiatric evaluation while she is here to assess the necessity of all of the different mood altering medications that are currently being prescribed. Otherwise I will reevaluate her your request. Subjective Interval history: The chart was reviewed, the patient was seen and examined independently. She still has complaints of some nausea however has been up walking around. She states that her legs feel rubbery when she stands for extended periods however she is not falling. Neurologic workup has been negative. Which includes; MRI scan of the brain, MRI of the cervical spine as well as MRI of the thoracic and lumbar spine. Objective - Constitutional Vitals: Temp Pulse Resp BP Pulse Ox 98.3 F 74 16 114/71 93 12/08/18 15:04 12/08/18 15:04 12/08/18 15:04 12/08/18 15:04 12/08/18 15:04 Exam: Exam: General Examination: *CONSTITUTIONAL: normal *GENERAL APPEARANCE OF PATIENT appears healthy and well groomed *EYES: pupils equal, round, reactive to light and accommodation, conjunctiva clear without masses or ulcerations, fundi normal. *CARDIOVASCULAR no peripheral edema, distal temperature normal, dorsalis pedis pulses normal. Refer to vital signs Musculoskeletal: *GAIT AND STATION normal, with normal Romberg testing, no abnormalities such as broad base gait or spasticity *ASSESSMENT OF MUSCLE STRENGTH IN THE UPPER AND LOWER EXTREMITIES deltoid, bicep, tricep, improvement coordinator strength, hip flexors ,anterior tibialis, dorsoflexion of the foot normal. *MUSCLE TONE IN THE UPPER AND LOWER EXTREMITIES normal. No abnormal movements, fasciculations or atrophy identified. Neurological: *ORIENTATION to time and place *RECURRENT AND REMOTE MEMORY intact *ATTENTION AND CONCENTRATION are normal *LANGUAGE FUNCTION no significant aphasia or dysarthia was noted. *FUND OF KNOWLEDGE aware of current events, past history, vocabulary *MENTAL attention span and concentration normal. Patient does however se em to be very anxious. *CN II optic fundi were normal, no papilledema noted. *CN III,IV, PERRLA extraocular eye movements were full, no nystagmus and no ptosis noted. *CN V shows normal sensation and jaw opens symmetrically. *CN VII shows normal facial movement symmetrically, upper and lower bilaterally. *CN VIII shows no significant hearing loss on examination in the office. *CN IX,,X palate elevated symmetrically and normal gag reflex was noted. *CN XI normal strength in the sternocleidomastoid muscles, symmetrical shoulder shrugging. *CN XII tongue protruded in the midline, with normal strength and movement. *SENSORY EXAMINATION pinprick sensation intact, and light touch(vibration sense). *REFLEXES: deep tendon reflexes were increased throughout. 3/4 of both upper and lower extremities. No Babinski or clonus are present. *CEREBELLAR TESTING normal finger to nose, heel/knee/scott *PAIN LEVEL -0 Results - Laboratory Findings CBC and BMP: 12/08/18 03:30 12/08/18 03:30 Abnormal lab findings: Abnormal lab results Plt Count 84 K/mcL (140-400) L 12/08/18 03:30 PT 14.1 Seconds (9.4-12.1) H 12/07/18 04:00 Chloride 108 mEq/L (98-107) H 12/08/18 03:30 Glucose 115 mg/dL (70-105) H 12/08/18 03:30 POC Glucose 108 mg/dL (70-99) H 12/07/18 20:44 Serum Total Protein 6.0 g/dL (6.4-8.9) L 12/07/18 04:00 Globulin 2.0 g/dL (2.4-3.5) L 12/07/18 04:00 Triglycerides 153 mg/dL (< 150) H 12/07/18 04:00 LDL Cholesterol Measurd 70 mg/dL (75-193) L 12/07/18 04:00 VLDL Cholesterol, Calc 31 mg/dL (< 31) H 12/07/18 04:00 HDL Cholesterol 30 mg/dL (40-59) L 12/07/18 04:00 Urine Ketones Trace mg/dL (Negative) H 12/07/18 00:28 Urine Bilirubin Small (Negative) H 12/07/18 00:28 Ur Leukocyte Esterase Small (Negative) H 12/07/18 00:28 Urine Microscopic RBC 3-5 per hpf (0-3) H 12/07/18 00:28 Urine Microscopic WBC 5-15 per hpf (0-3) H 12/07/18 00:28 Ur Squamous Epith Cells Many per lpf (None-Few) H 12/07/18 00:28
[2018-12-08] MEDS: lamoTRIgine 100 MG TABLET PO SCH ×2 (09:00→20:50)
[2018-12-08] MEDS: clonazePAM 1 MG TABLET PO SCH ×3 (09:01→20:51)
[2018-12-08] MEDS: FLUoxetine 20 MG CAPSULE PO SCH (09:01)
--- NOTE | 2018-12-08 13:58 | Internal Med Progress Note ---
Hospitalist Progress Note - Encounter Date of Encounter: 12/08/18 Time of Encounter: 13:56 - Subjective Interval History: Pt seen and examined in the room. Leg weakness has improving, no slurred speech or trouble with word finding. - Exam Vitals: Temp Pulse Resp BP Pulse Ox 98.2 F 75 16 122/78 95 12/08/18 11:56 12/08/18 11:56 12/08/18 11:56 12/08/18 11:56 12/08/18 11:56 Exam: General: Alert and oriented 3 lying in bed in no acute distress Skin:Normal color, no rash, no lesions. HEENT:EOM, pupils equal, round and reactive. Cardiovascular:Normal S1 & S2, no rubs, murmurs or gallops. No JVD. Pulse regular. Lungs:Normal breath sounds, no wheezes or crackles. Abdomen:Soft, non-tender, no rigidity. Extremities:No deformity, no edema or tenderness, no joint swelling or clubbing. Amputation of the right first toe. Mild edema of the second toe. Neurological:Normal cognition ; cranial nerves II through XII intact. 4 out of 5 muscle strength in lower extremities; 5 out of 5 in the upper extremities; no evidence of pronator drift. Decreased sensation in the lower extremities below the knees; hyperreflexic Pulses:Carotid and radial pulses normal +2. - Assessment and Plan (1) Leg weakness, bilateral Current Visit: Yes Status: Acute Assessment and Plan: 63-year-old female with history of diabetes presented with acute onset of bilateral leg weakness and unsteady gait. She reported a possible URI prior to the event. The weakness and ataxia occurred about a week ago and progressively worsened until she decided to seek medical attention. The weakness occurs when the patient change from sitting/lying to standing, with associated di sequilibrium as described by pt " standing on a rubber". Workup so far including MRI of brain, cervical, thoracic, and lumbar, ECHO, serum level of Vit B12, D, and TSH. carotid doppler, were all unremarkable. Neurology was consulted and neurological etiology was less likely. PT/OT recommended home health. Plan to dc in am. (2) Word finding difficulty Current Visit: Yes Status: Resolved Assessment and Plan: resolved. normal MRI brain. (3) Diabetes mellitus Current Visit: Yes Status: Chronic Assessment and Plan: Blood Glucose checks; Sliding scale insulin (4) DVT prophylaxis Current Visit: Yes Status: Acute Assessment and Plan: Subcutaneous heparin - Time Spent with Patient Total time spent is greater than 50% in coordination of care (as documented) at patient's floor/unit and/or counseling patient: Greater than 35 minutes Plan of Care Discussed with: patient Internal Medicine: Result - Labs CBC & Chem 7: 12/08/18 03:30 12/08/18 03:30 Labs: Short CBC 12/08/18 Range/Units 03:30 WBC 5.3 (4.3-11.1) K/mcL Hgb 13.9 (11.5-15.4) g/dL Hct 43.7 (35.3-44.9) % Plt Count 84 L (140-400) K/mcL Neutrophils # 1.9 (1.6-8.9) K/mcL BMP 12/08/18 03:30 Sodium 141 Potassium 3.6 Chloride 108 H Carbon Dioxide 25 BUN 15 Creatinine 0.78 Glucose 115 H Calcium 9.2 - ABG Interpretation ABG results: PT/INR, D-dimer PT 14.1 Seconds (9.4-12.1) H 12/07/18 04:00 - Impressions Impressions Echocardiogram 12/07/18 00:01 Impressions: LVEF 55-60%. Normal LV chamber size, wall thickness and function. Normal left ventricular diastolic function. Mildly dilated right ventricle with normal function. Poor quality agitated saline contrast study. No significant valvular dysfunction. No evidence of pulmonary hypertension. Left Ventricular Wall Motion: Rest Echo Findings All wall segments showed normal motion. Findings: Study Quality * Technically sub-optimal due to poor echocardiographic windows. ECG Findings * Normal sinus rhythm. Left Ventricle * LVEF 55-60%. * Normal LV chamber size, wall thickness and function. * Normal left ventricular diastolic function. Right Ventricle * Mildly dilated right ventricle with normal function. * Mildly dilated right ventricle. Left Atrium * Normal left atrial size. Right Atrium * Normal right atrial size. Interatrial Septum * Poor quality agitated saline contrast study. Aortic Valve * Trileaflet aortic valve. * Normal aortic valve structure. * No aortic regurgitation. * No aortic stenosis. Mitral Valve * Trace mitral regurgitation. * Normal mitral valve structure. * No mitral stenosis. Tricuspid Valve * Trace tricuspid regurgitation. * No tricuspid stenosis. * Normal tricuspid valve structure. * No evidence of pulmonary hypertension. Pulmonic Valve * Pulmonic valve is not well visualized. Aorta * Normally sized aortic root. Pericardium * The pericardium appears normal. IVC * The IVC is not well evaluated. Pulmonary Artery * Pulmonary artery not well visualized. Lumbar Spine MRI 12/07/18 07:12 IMPRESSION: 1. Mild spinal canal stenosis and mild right neural foraminal narrowing at L3-4 secondary to a disc bulge, facet arthropathy and thickening of the ligamentum flavum. 2. Mild to moderate bilateral neural foraminal narrowing at L4-5 and L5-S1, as described above. 3. No abnormal enhancement. D/ / 12/07/2018 11:42:19 Jake Heath MD / [facility] Interpreting Provider: Jake Heath MD Thoracic Spine MRI 12/07/18 07:12 IMPRESSION: Mild spinal canal stenosis at T7-8 secondary to a focal 2 mm central disc protrusion. Otherwise, unremarkable MRI of the thoracic spine. D/ / 12/07/2018 11:32:43 Jake Heath MD / [facility] Interpreting Provider: Jake Heath MD Cervical Spine MRI 12/07/18 15:22 IMPRESSION: Motion degraded study. Multilevel degenerative changes of the cervical spine. There is mild spinal canal stenosis at C3-C4 and C6-C7. Multilevel neural foraminal narrowing, including severe right neural foraminal stenosis at C5-C6. D/ / 12/07/2018 22:42:25 Rossana Anderson MD / [facility] Interpreting Provider: Rossana Anderson MD Foot X-Ray 12/07/18 19:41 IMPRESSION: 2nd toe soft tissue swelling. No definite radiographic evidence of acute osteomyelitis. D/ / 12/07/2018 22:54:10 Familia Garcia MD / [facility] Interpreting Provider: Familia Garcia MD Consult Discharge Plan - Plan Additional Instructions: Home health has been set up through [facility] for Physical Therapy and Nursing. They will contact you to set up a date and time to complete admission. If you need to contact them, please call #[phone] or #[phone]. Referrals: Carlos Juares DPM [Partnered Physician] - 12/16/18 4:00 pm Kia Dunlap CNP [Primary Care Provider] - 12/16/18 4:00 pm () (3) Diabetes mellitus Qualifiers: Diabetes mellitus type: type 2 Diabetes mellitus intermediate insulin use: without middle or intermediate school principal use Diabetes mellitus complication status: with skin complications Diabetes mellitus complication detail: with foot ulcer Qualified Code(s): E11.621 - Type 2 diabetes mellitus with foot ulcer; L97.509 - Non- pressure chronic ulcer of other part of unspecified foot with unspecified severity
[2018-12-08] MEDS ORDERED: Acetaminophen 325 MG TABLET PO PRN (17:37)
[2018-12-09 06:44] LABS: Mean Corpuscular Volume 95.3 fL (83.0-100.0); Red Cell Distribution Width 13.3 % (11.5-14.5)
[2018-12-09 06:46] LABS: Eosinophils # 0.1 K/mcL (0.0-0.6); Eosinophils % 2.2 %; Hematocrit 42.6 % (35.3-44.9); Hemoglobin 13.6 g/dL (11.5-15.4); Immature Granulocytes % 0.2 % (0-4); Immature Platelets 4.5 % (1.1-6.1); Lymphocytes # 2.1 K/mcL (0.6-4.6); Lymphocytes % 52.6 %; Mean Corpuscular HGB Conc 31.9 g/dL (31.6-35.5); Mean Corpuscular Hemoglobin 30.4 pg (28.0-33.3); Mean Platelet Volume 11.1 fL (9.4-12.4); Monocytes # 0.3 K/mcL (0.0-1.3); Monocytes % 6.5 %; Neutrophils # 1.5 K/mcL (1.6-8.9); Red Blood Count 4.47 M/mcL (3.82-4.97); Segmented Neutrophils % 37.5 %
[2018-12-09 06:47] LABS: Platelet Count 75 K/mcL (140-400)
[2018-12-09] MEDS: *HR* Heparin 5,000 UNIT/ML VIAL SQ SCH (06:58)
[2018-12-09 07:03] LABS: BUN/Creatinine Ratio 21 (6-26); Blood Urea Nitrogen 15 mg/dL (8-23); Carbon Dioxide 27 mEq/L (23-29); Chloride 108 mEq/L (98-107); Glucose 125 mg/dL (70-105); Osmolality,Calculated 292 (280-300); Sodium 140 mEq/L (136-145); eGFR For Non-African Americans > 60 (> 60)
[2018-12-09 07:29] VITALS: BP 115/74
[2018-12-09] MEDS: Insulin LISPRO 300 UNITS/3 ML VIAL SQ SCH (07:42)
[2018-12-09] MEDS: lamoTRIgine 100 MG TABLET PO SCH (08:54)
[2018-12-09] MEDS: clonazePAM 1 MG TABLET PO SCH (08:54)
[2018-12-09] MEDS: FLUoxetine 20 MG CAPSULE PO SCH (08:55)
--- NOTE | 2018-12-09 10:38 | Physician Discharge Referral ---
Home Health/Hosp Referral Info Transfer to: Home Health Provider in Charge Post Discharge: PCP - Diagnosis (1) Leg weakness, bilateral Priority: Primary Status: Acute (2) Word finding difficulty Priority: Primary Status: Resolved (3) Diabetes mellitus Priority: Secondary Status: Chronic (4) DVT prophylaxis Priority: Primary Status: Acute - Respiratory Orders Smoking Cessation: Smoking cessation has been advised. For more information, call the [place] Tobacco Quit Line at 0-759-NRDC-NOW. - Services Needed Following services are medically necessary services: Nursing, Home Health Aide, Physical Therapy, Occupational Therapy - Transfer Medications Home Medications: FLUoxetine HCl [Prozac] 80 mg PO DAILY 08/29/16 [History] metFORMIN [Glucophage] 500 mg PO BIDWM 08/29/16 [History] Furosemide [Lasix] 20 mg PO DAILY 02/10/18 [History] Glimepiride [Amaryl] 4 mg PO DAILY 02/10/18 [History] lamoTRIgine [Lamictal] 150 mg PO BID 02/10/18 [History] Fluticasone Propionate Nasal [Flonase] 2 spray NS DAILY PRN 07/20/18 [History] Loratadine [Claritin] 10 mg PO DAILY 07/20/18 [History] Montelukast [Singulair] 10 mg PO DAILY 07/20/18 [History] Bupropion HCl [Wellbutrin Xl] 300 mg PO DAILY 07/28/18 [History] Quetiapine Fumarate [Seroquel] 200 mg PO HS 08/03/18 [History] Acetaminophen [Tylenol] 1,000 mg PO Q6HR PRN tablet 08/12/18 [Rx] Simvastatin [Zocor] 20 mg PO HS tablet 08/12/18 [Rx] Buspirone HCl [Buspar] 30 mg PO BID 08/13/18 [History] Gabapentin [Neurontin] 300 mg PO HS capsule 08/13/18 [Rx] Meclizine HCl [Verticalm] 25 mg PO BID 08/13/18 [History] Omeprazole [PriLOSEC] 40 mg PO DAILY 08/13/18 [History] clonazePAM [Clonazepam] 2 mg PO TID 08/13/18 [History] Allopurinol [Zyloprim 100 MG] 100 mg PO DAILY 12/06/18 [History] Losartan Potassium 50 mg PO DAILY 12/07/18 [History] Potassium Chloride [K-Tab ER] 60 meq PO BID 12/07/18 [History] Allergies/Adverse Reactions: Allergy/AdvReac Type Severity Reaction Status Date / Time codeine Allergy Rash Verified 12/07/18 18:17 fentanyl AdvReac Nausea Verified 12/07/18 18:17 Certification: Further, I certify that my clinical findings support that this patient is homebound (i.e. absences from home require considerable and taxing effort and are for medical reasons or holiness services or infrequently or short duration when for other reasons) because: Homebound Reason: Patient requires assistance of a person or device to safely leave home Attestation: My signature below is to certify that this patient is under my care and that I, or nurse practitioner, or a physician's district administrative assistant working with me, has a [id number] encounter with this patient.
--- NOTE | 2018-12-09 10:43 | Discharge Summary ---
- NOTES TO OUTPATIENT PROVIDER Notes to Outpatient Provider: f/u with PCP within a week. F/u with neurology within 2 weeks. Date of Encounter: 12/09/18 Time of Encounter: 10:38 - Discharge Diagnosis (1) Leg weakness, bilateral Priority: Primary Status: Acute (2) Word finding difficulty Priority: Primary Status: Resolved (3) Diabetes mellitus Priority: Secondary Status: Chronic Qualifiers: Diabetes mellitus type: type 2 Diabetes mellitus terminal operations supervisor insulin use: without longterm use Diabetes mellitus complication status: with skin complications Diabetes mellitus complication detail: with foot ulcer Qualified Code(s): E11.621 - Type 2 diabetes mellitus with foot ulcer; L97.509 - Non-pressure chronic ulcer of other part of unspecified foot with unspecified severity (4) DVT prophylaxis Priority: Primary Status: Acute Hospital course: Ms. Burris is a 63 year old female with a past medical history of diabetes, diabetic neuropathy hyperlipidemia and hypertension who initially presented to [facility] with complaints of lower extremity numbness and weakness. Patient states that her symptoms began on the when she felt that she was coming down with something. She felt a little off balance and throughout the course of the day and into the following day had 4 episodes of nonbloody nonbilious emesis. She had one episode of loose stools. Since then she reports episodes of feeling lightheaded whenever she would arise. On one episode when she stood up to go to the restroom at a restaurant, she states she felt as if her legs were wobbly and that she did not have full control. She also noted numbness in them well. She had a similar presentation yesterday in which she felt unsteady on her feet and reported numbness in both lower extremities. She feels that her symptoms are aggravated the longer she stands on her feet. On the day of admission, she reports that she went to get a haircut and after getting up from the chair felt very weak and was uncertain she was able to make it to her car. After she arrived home she called her doctor and [place] who advised her to come into the ED. Patient also feels that she is having difficulty finding words and perioral numbness. Patient denies any headache, blurring vision, fever, chills, chest pain, shortness of breath, abdominal pain. Patient initially presented to [facility] where she was evaluated. Neuro exam reveal bilateral weakness with hyperreflexia and mildly decreased sensation below knees. Also known diabetic with right great toe amputation in July of 2018. Well healed. May be contributing to unsteady gait MRI of head, thoracic, lumbar spine obtained: results show no acute process in brain, stenosis of lumbar and thoracic spine with no evidence of myelitis. MRI cervical also obtained, shows multilevel mild spinal stenosis, severe in C5-6 foraminal stenosis. ECHO and carotid doppler both are unremarkable. Neurology was consulted. Pt reported a recent URI with GI symptoms. She is alos likely dehydrated. Lasix was dc'ed and she received IVF. Symptoms improved. PT/OT recommended home health. Pt is discharged home today, f/u with PCP and Neurology within a week. Discharge discussed with: patient Time spent discussing smoking cessation with patient: more than 10 minutes - Time Spent with Patient Total time spent providing and/or coordinating discharge services: Time spent: Greater than 30 minutes - Discharge Medications Prescriptions: Continue lamoTRIgine [Lamictal] 150 mg PO BID Glimepiride [Amaryl] 4 mg PO DAILY Bupropion HCl [Wellbutrin Xl] 300 mg PO DAILY Quetiapine Fumarate [Seroquel] 200 mg PO HS Buspirone HCl [Buspar] 30 mg PO BID clonazePAM [Clonazepam] 2 mg PO TID Omeprazole [PriLOSEC] 40 mg PO DAILY Allopurinol [Zyloprim 100 MG] 100 mg PO DAILY Losartan Potassium 50 mg PO DAILY metFORMIN [Glucophage] 500 mg PO BIDWM FLUoxetine HCl [Prozac] 80 mg PO DAILY Montelukast [Singulair] 10 mg PO DAILY Loratadine [Claritin] 10 mg PO DAILY Fluticasone Propionate Nasal [Flonase] 2 spray NS DAILY PRN PRN Reason: Allergy Symptoms Acetaminophen [Tylenol] 1,000 mg PO Q6HR PRN tablet PRN Reason: Pain Simvastatin [Zocor] 20 mg PO HS tablet Gabapentin [Neurontin] 300 mg PO HS capsule Discontinued Furosemide [Lasix] 20 mg PO DAILY Meclizine HCl [Verticalm] 25 mg PO BID Potassium Chloride [K-Tab ER] 60 meq PO BID Home Medications: FLUoxetine HCl [Prozac] 80 mg PO DAILY 08/29/16 [History] metFORMIN [Glucophage] 500 mg PO BIDWM 08/29/16 [History] Glimepiride [Amaryl] 4 mg PO DAILY 02/10/18 [History] lamoTRIgine [Lamictal] 150 mg PO BID 02/10/18 [History] Fluticasone Propionate Nasal [Flonase] 2 spray NS DAILY PRN 07/20/18 [History] Loratadine [Claritin] 10 mg PO DAILY 07/20/18 [History] Montelukast [Singulair] 10 mg PO DAILY 07/20/18 [History] Bupropion HCl [Wellbutrin Xl] 300 mg PO DAILY 07/28/18 [History] Quetiapine Fumarate [Seroquel] 200 mg PO HS 08/03/18 [History] Acetaminophen [Tylenol] 1,000 mg PO Q6HR PRN tablet 08/12/18 [Rx] Simvastatin [Zocor] 20 mg PO HS tablet 08/12/18 [Rx] Buspirone HCl [Buspar] 30 mg PO BID 08/13/18 [History] Gabapentin [Neurontin] 300 mg PO HS capsule 08/13/18 [Rx] Omeprazole [PriLOSEC] 40 mg PO DAILY 08/13/18 [History] clonazePAM [Clonazepam] 2 mg PO TID 08/13/18 [History] Allopurinol [Zyloprim 100 MG] 100 mg PO DAILY 12/06/18 [History] Losartan Potassium 50 mg PO DAILY 12/07/18 [History] Allergies/Adverse Reactions: Allergy/AdvReac Type Severity Reaction Status Date / Time codeine Allergy Rash Verified 12/07/18 18:17 fentanyl AdvReac Nausea Verified 12/07/18 18:17 Date of admission: 12/06/18 17:36 Primary care physician: Kia Dunlap CNP Consults: 12/06/18 23:58 Consult to Neurology [CONS] Routine Consulting Provider: Neurology [facility] Reason for Consult: Bilateral lower extremity weakness Call Completed: No Consult to Physical Therapy [CONS] Routine Comment: Evaluate, develop and implement POC Reason for Consult: Bilateral lower extremity weakness Does patient have active BEDREST order?: No Is patient medically & hemodynamically stable?: No Anticipated date of discharge: 12/09/18 - Constitutional Vitals: Temp Pulse Resp BP Pulse Ox 97.8 F 70 18 115/74 94 12/09/18 07:23 12/09/18 07:23 12/09/18 07:23 12/09/18 07:23 12/09/18 07:23 General appearance: Present: A&O X 3 Exam: General: Alert and oriented 3 lying in bed in no acute distress Skin:Normal color, no rash, no lesions. HEENT:EOM, pupils equal, round and reactive. Cardiovascular:Normal S1 & S2, no rubs, murmurs or gallops. No JVD. Pulse regular. Lungs:Normal breath sounds, no wheezes or crackles. Abdomen:Soft, non-tender, no rigidity. Extremities:No deformity, no edema or tenderness, no joint swelling or clubbing. Amputation of the right first toe. Mild edema of the second toe. Neurological:Normal cognition ; cranial nerves II through XII intact. 4 out of 5 muscle strength in lower extremities; 5 out of 5 in the upper extremities; no evidence of pronator drift. Decreased sensation in the lower extremities below the knees; hyperreflexic Pulses:Carotid and radial pulses normal +2. - Patient Status Disposition: Home Health Service Condition: Fair Functional capacity at discharge: independent ambulation Overall status at discharge: patient is progressing back to baseline - Discharge Instructions Follow Up With: Carlos Juares DPM [Partnered Physician] - 12/16/18 4:00 pm Kia Dunlap CNP [Primary Care Provider] - 12/16/18 4:00 pm () Additional Instructions: Home health has been set up through [facility]. They will contact you to set up a date and time to complete admission. If you need to contact them, please call #[phone] or #[phone]. - Diet and Activity Activity: resume usual activities as tolerated Diet: diabetic diet, low fat, low cholesterol
== END 2018-12-09 12:08 | disposition home health service (06) | DRG 556 ==
LOC: 3BNU → OBSVTOIN 17:36
PROVIDERS: ADMIT Hospitalist; ATTEND Hospitalist

== ENCOUNTER 2020-06-04 14:10 | Inpatient (IN) ==
[2020-06-04] MEDS ORDERED: 0.9 % Sodium Chloride 1,000 ML IVC ONE (14:27)
[2020-06-04] MEDS ORDERED: Isovue-370 500 ML BOTTLE IVP ONE (14:29)
[2020-06-04] MEDS ORDERED: Vancomycin 2,000 MG/520 ML IV.SOLN IVPB ONE (14:41)
[2020-06-04] MEDS ORDERED: Ondansetron 4 MG/2 ML VIAL IVP ONE ×2 (14:44→16:16)
[2020-06-04] MEDS ORDERED: *HR* HYDROmorphone (PF) 1 MG/ML SYRINGE IVP ONE ×2 (14:45→16:28)
[2020-06-04 14:49] LABS: Basophils % 0.4 %; Eosinophils % 0.3 %; Hemoglobin 14.5 g/dL (11.5-15.4); Immature Granulocytes % 0.5 % (0-4); Mean Corpuscular Volume 92.8 fL (83.0-100.0); Monocytes % 10.5 %
[2020-06-04 14:51] LABS: Hematocrit 44.9 % (35.3-44.9); Immature Platelets 6.4 % (1.1-6.1); Lymphocytes % 9.4 %; Mean Corpuscular HGB Conc 32.3 g/dL (31.6-35.5); Mean Platelet Volume 10.7 fL (9.4-12.4); Neutrophils # 8.6 K/mcL (1.6-8.9); Platelet Count 121 K/mcL (140-400); Red Blood Count 4.84 M/mcL (3.82-4.97); Segmented Neutrophils % 78.9 %; White Blood Count 10.9 K/mcL (4.3-11.1)
[2020-06-04 14:52] LABS: Monocytes # 1.1 K/mcL (0.0-1.3)
[2020-06-04] MEDS ORDERED: GENTAMICIN IVPB ONE (15:00)
[2020-06-04] MEDS ORDERED: SODIUM CHLORIDE 0.9% IVPB ONE (15:00)
[2020-06-04 15:09] LABS: Alanine Aminotransferase 8 Units/L (7-52); Albumin 4.3 g/dL (3.5-5.7); Albumin/Globulin Ratio 1.6 (1.1-2.2); Alkaline Phosphatase 42 Units/L (34-104); Aspartate Amino Transferase 9 Units/L (13-39); BUN/Creatinine Ratio 22 (6-26); Bilirubin,Direct 0.2 mg/dL (0.0-0.2); Bilirubin,Indirect 0.7 mg/dL (0.0-1.0); Bilirubin,Total 0.9 mg/dL (0.3-1.0); Blood Urea Nitrogen 18 mg/dL (8-23); Calcium 9.3 mg/dL (8.6-10.3); Carbon Dioxide 22 mEq/L (23-29); Chloride 103 mEq/L (98-107); Globulin 2.7 g/dL (2.4-3.5); Glucose 134 mg/dL (70-105); Osmolality,Calculated 284 (280-300); Sodium 135 mEq/L (136-145); eGFR For African Americans > 60 (> 60); eGFR For Non-African Americans > 60 (> 60)
[2020-06-04] MEDS ORDERED: Clindamycin 600 MG/50 ML 600 MG/50 ML IV.SOLN IVPB STA (16:54)
[2020-06-04] MEDS ORDERED: Piperacillin/Tazobactam 3.375 GM in 0.9 % Sodium Chloride Mini Bag 100 ML IVPB STA (17:10)
[2020-06-04] MEDS ORDERED: Acetaminophen IV 1,000 MG/100 ML INFUS..BTL IVPB ONE (17:11)
[2020-06-04] MEDS ORDERED: Naloxone 0.4 MG/ML INJ IVP PRN (17:42)
[2020-06-04 18:25] LABS: INR 1.4; Prothrombin Time 15.5 Seconds (9.4-12.1)
[2020-06-04] MEDS ORDERED: Ringers Solution, Lactated 1,000 ML IVC ONE (18:32)
[2020-06-04] MEDS ORDERED: Dextrose Gel 15 GM/37.5 ML TUBE PO PRN ×2 (18:33)
[2020-06-04] MEDS ORDERED: D5% in Water 1,000 ML IVC PRN (18:33)
[2020-06-04] MEDS ORDERED: *HR* Dextrose 50 % in Water (Vial) 50 ML VIAL IVP PRN (18:33)
[2020-06-04] MEDS ORDERED: 0.9 % Sodium Chloride 1,000 ML IVC SCH (18:45)
[2020-06-04] MEDS ORDERED: Ketorolac 15 MG/ML VIAL IVP PRN (20:05)
[2020-06-04 21:03] LABS: Adenovirus Not Detected (Not Detect); Bordetella Pertussis Not Detected (Not Detect); Chlamydophila pneumoniae Not Detected (Not Detect); Coronavirus 229E Not Detected (Not Detect); Coronavirus HKU1 Not Detected (Not Detect); Coronavirus NL63 Not Detected (Not Detect); Coronavirus OC43 Not Detected (Not Detect); Human Metapneumovirus Not Detected (Not Detect); Human Rhinovirus/Enterovirus Not Detected (Not Detect); Influenza A Subtype 2009 H1 Not Detected (Not Detect); Influenza B Not Detected (Not Detect); Mycoplasma pneumoniae Not Detected (Not Detect); Parainfluenza Virus 1 Not Detected (Not Detect); Parainfluenza Virus 2 Not Detected (Not Detect); Parainfluenza Virus 3 Not Detected (Not Detect); Parainfluenza Virus 4 Not Detected (Not Detect); Respiratory Syncytial Virus Not Detected (Not Detect); SARS-CoV-2 Not Detected (Not Detect)
[2020-06-04] MEDS ORDERED: *HR* Heparin 5,000 UNIT/ML VIAL SQ SCH (22:00)
[2020-06-05] MEDS ORDERED: Vancomycin 1,000 MG VIAL ONE (00:02)
[2020-06-05] MEDS ORDERED: Scopolamine Patch 1.5 MG PATCH.TD72 ONE (00:04)
[2020-06-05] MEDS ORDERED: Famotidine 20 MG/2 ML VIAL ONE (00:04)
[2020-06-05] MEDS ORDERED: *HR* Vasopressin 20 UNIT/ML VIAL ONE (00:10)
[2020-06-05] MEDS ORDERED: Ondansetron 4 MG/2 ML VIAL ONE (00:12)
[2020-06-05] MEDS ORDERED: Lidocaine -MPF 2% 2 ML VIAL ONE (00:12)
[2020-06-05] MEDS ORDERED: Lidocaine HCL 4 ML Topical Solution (Laryng-O-Jet Kit Sterile Pak) TP ONE (00:12)
[2020-06-05] MEDS ORDERED: Dexamethasone 4 MG/ML VIAL ONE (00:12)
[2020-06-05] MEDS ORDERED: *HR* Succinylcholine 200 MG/10 ML VIAL IVP ONE (00:12)
[2020-06-05] MEDS ORDERED: *HR* Propofol 200 MG/20 ML VIAL IVP ONE ×2 (00:12→00:48)
[2020-06-05] MEDS ORDERED: *HR* FentaNYL (PF) 100 MCG/2 ML VIAL ONE (00:12)
[2020-06-05] MEDS ORDERED: 0.9 % Sodium Chloride 500 ML IVC ONE (00:46)
[2020-06-05] MEDS ORDERED: Piperacillin/Tazobactam 3.375 GM in 0.9 % Sodium Chloride Mini Bag 100 ML IVPB SCH ×2 (01:00→09:00)
[2020-06-05] MEDS ORDERED: Ringers Solution, Lactated 1,000 ML ONE (01:18)
[2020-06-05] MEDS ORDERED: D5% in Water 1,000 ML IVC PRN ×2 (01:55→02:39)
[2020-06-05] MEDS ORDERED: 0.9 % Sodium Chloride 1,000 ML IVC SCH (01:55)
[2020-06-05] MEDS ORDERED: Dextrose Gel 15 GM/37.5 ML TUBE PO PRN ×4 (01:55→02:39)
[2020-06-05] MEDS ORDERED: Ketorolac 15 MG/ML VIAL IVP PRN (01:55)
[2020-06-05] MEDS ORDERED: Naloxone 0.4 MG/ML INJ IVP PRN (01:55)
[2020-06-05] MEDS ORDERED: *HR* Dextrose 50 % in Water (Vial) 50 ML VIAL IVP PRN ×2 (01:55→02:39)
[2020-06-05] MEDS ORDERED: Ringers Solution, Lactated 1,000 ML IVC SCH (02:45)
[2020-06-05] MEDS ORDERED: Vancomycin 1,500 MG/265 ML IV.SOLN IVPB SCH ×2 (04:00)
[2020-06-05] MEDS ORDERED: Insulin LISPRO 300 UNITS/3 ML VIAL SQ SCH ×2 (06:00)
[2020-06-05] MEDS ORDERED: *HR* Heparin 5,000 UNIT/ML VIAL SQ SCH (06:00)
[2020-06-05] MEDS: Acetaminophen IV 1,000 MG/100 ML INFUS..BTL IVPB SCH ×3 (06:05→17:08)
[2020-06-05] MEDS: *HR* HYDROmorphone 2 MG TABLET PO PRN ×3 (06:13→18:13)
[2020-06-05] MEDS: Vancomycin 1,500 MG/265 ML IV.SOLN IVPB SCH ×2 (06:43→18:12)
[2020-06-05] MEDS ORDERED: Clindamycin 600 MG/50 ML 600 MG/50 ML IV.SOLN IVPB SCH ×2 (08:00)
[2020-06-05] MEDS: Insulin LISPRO 300 UNITS/3 ML VIAL SQ SCH ×5 (08:02→20:27)
[2020-06-05] MEDS: 0.9 % Sodium Chloride 1,000 ML IVC SCH ×2 (08:13→17:05)
[2020-06-05] MEDS: Clindamycin 600 MG/50 ML 600 MG/50 ML IV.SOLN IVPB SCH ×2 (08:16→17:04)
[2020-06-05] MEDS: Piperacillin/Tazobactam 3.375 GM in 0.9 % Sodium Chloride Mini Bag 100 ML IVPB SCH ×2 (08:18→17:05)
[2020-06-05 09:44] LABS: Basophils % 0.3 %; Eosinophils % 0.2 %; Mean Corpuscular Volume 93.6 fL (83.0-100.0); Mean Platelet Volume 11.3 fL (9.4-12.4); Platelet Count 108 K/mcL (140-400); Red Cell Distribution Width 13.2 % (11.5-14.5)
[2020-06-05 09:46] LABS: Hemoglobin 12.2 g/dL (11.5-15.4); Immature Granulocytes % 0.5 % (0-4); Immature Platelets 5.7 % (1.1-6.1); Lymphocytes % 10.4 %; Mean Corpuscular HGB Conc 32.1 g/dL (31.6-35.5); Monocytes # 0.5 K/mcL (0.0-1.3); Monocytes % 8.5 %; Red Blood Count 4.06 M/mcL (3.82-4.97); Segmented Neutrophils % 80.1 %; White Blood Count 6.2 K/mcL (4.3-11.1)
[2020-06-05 09:52] LABS: Lymphocytes # 0.6 K/mcL (0.6-4.6)
[2020-06-05 10:11] LABS: BUN/Creatinine Ratio 26 (6-26); Blood Urea Nitrogen 20 mg/dL (8-23); Calcium 8.2 mg/dL (8.6-10.3); Carbon Dioxide 23 mEq/L (23-29); Chloride 107 mEq/L (98-107); Glucose 157 mg/dL (70-105); Osmolality,Calculated 292 (280-300); Potassium 4.7 mEq/L (3.5-5.1); Sodium 138 mEq/L (136-145); eGFR For African Americans > 60 (> 60); eGFR For Non-African Americans > 60 (> 60)
[2020-06-05] MEDS: *HR* Heparin 5,000 UNIT/ML VIAL SQ SCH ×2 (13:51→20:28)
[2020-06-05] MEDS: Ketorolac 15 MG/ML VIAL IVP PRN ×2 (13:56→20:28)
[2020-06-06] MEDS: FLUoxetine 20 MG CAPSULE PO SCH ×2 (00:01→21:37)
[2020-06-06] MEDS: *HR* HYDROmorphone 2 MG TABLET PO PRN ×2 (00:01→10:19)
[2020-06-06] MEDS: lamoTRIgine 100 MG TABLET PO SCH ×3 (00:01→21:38)
[2020-06-06] MEDS: Gabapentin 300 MG CAPSULE PO SCH ×2 (00:01→21:37)
[2020-06-06] MEDS: Clindamycin 600 MG/50 ML 600 MG/50 ML IV.SOLN IVPB SCH ×2 (00:03→08:30)
[2020-06-06] MEDS: Piperacillin/Tazobactam 3.375 GM in 0.9 % Sodium Chloride Mini Bag 100 ML IVPB SCH ×4 (00:03→23:37)
[2020-06-06 04:30] LABS: Hematocrit 36.7 % (35.3-44.9); Hemoglobin 11.5 g/dL (11.5-15.4); Mean Corpuscular HGB Conc 31.3 g/dL (31.6-35.5); Mean Corpuscular Volume 95.8 fL (83.0-100.0); Mean Platelet Volume 11.2 fL (9.4-12.4); Platelet Count 103 K/mcL (140-400); Red Blood Count 3.83 M/mcL (3.82-4.97); Red Cell Distribution Width 13.2 % (11.5-14.5); White Blood Count 4.8 K/mcL (4.3-11.1)
[2020-06-06 04:44] LABS: BUN/Creatinine Ratio 27 (6-26); Blood Urea Nitrogen 21 mg/dL (8-23); Carbon Dioxide 23 mEq/L (23-29); Chloride 112 mEq/L (98-107); Glucose 105 mg/dL (70-105); Osmolality,Calculated 295 (280-300); Potassium 3.8 mEq/L (3.5-5.1); Sodium 141 mEq/L (136-145); eGFR For African Americans > 60 (> 60); eGFR For Non-African Americans > 60 (> 60)
[2020-06-06] MEDS: Acetaminophen IV 1,000 MG/100 ML INFUS..BTL IVPB SCH ×5 (05:41→23:37)
[2020-06-06] MEDS: Vancomycin 1,500 MG/265 ML IV.SOLN IVPB SCH (05:48)
[2020-06-06] MEDS: *HR* Heparin 5,000 UNIT/ML VIAL SQ SCH ×3 (05:49→21:39)
[2020-06-06] MEDS: 0.9 % Sodium Chloride 1,000 ML IVC SCH ×3 (08:29→23:36)
[2020-06-06] MEDS: Loratadine 10 MG TABLET PO SCH (08:48)
[2020-06-06] MEDS: BuPROPion XL (24 HR) 150 MG TABLET PO SCH (08:51)
[2020-06-06] MEDS: allopurinoL 100 MG TABLET PO SCH (08:51)
[2020-06-06] MEDS: Insulin LISPRO 300 UNITS/3 ML VIAL SQ SCH ×4 (11:27→21:29)
[2020-06-06] MEDS ORDERED: *HR* OxyCODONE/APAP 5/325 TABLET PO PRN (13:23)
[2020-06-06] MEDS: *HR* OxyCODONE/APAP 10/325 TABLET PO PRN ×2 (15:20→21:38)
[2020-06-06] MEDS: Ketorolac 15 MG/ML VIAL IVP PRN (16:25)
[2020-06-06] MEDS: Vancomycin 1,750 MG/517.5 ML IV.SOLN IVPB SCH (18:38)
[2020-06-06] MEDS: Melatonin 3 MG TABLET PO SCH ×2 (21:37)
[2020-06-06] MEDS: QUEtiapine Fumarate 100 MG TABLET PO SCH ×2 (21:37)
[2020-06-06] MEDS: Ondansetron 4 MG/2 ML VIAL IVP PRN (23:38)
[2020-06-07] MEDS: Vancomycin 1,750 MG/517.5 ML IV.SOLN IVPB SCH (06:03)
[2020-06-07] MEDS: *HR* Heparin 5,000 UNIT/ML VIAL SQ SCH ×3 (06:04→22:05)
[2020-06-07] MEDS: Acetaminophen IV 1,000 MG/100 ML INFUS..BTL IVPB SCH ×2 (06:04→11:02)
[2020-06-07 06:47] LABS: Hematocrit 39.6 % (35.3-44.9); Mean Corpuscular HGB Conc 30.3 g/dL (31.6-35.5); Mean Corpuscular Hemoglobin 29.4 pg (28.0-33.3); Mean Corpuscular Volume 97.1 fL (83.0-100.0); Platelet Count 113 K/mcL (140-400); Red Blood Count 4.08 M/mcL (3.82-4.97); Red Cell Distribution Width 13.2 % (11.5-14.5); White Blood Count 3.3 K/mcL (4.3-11.1)
[2020-06-07] MEDS: allopurinoL 100 MG TABLET PO SCH (07:22)
[2020-06-07] MEDS: BuPROPion XL (24 HR) 150 MG TABLET PO SCH (07:22)
[2020-06-07] MEDS: Loratadine 10 MG TABLET PO SCH (07:22)
[2020-06-07] MEDS: Piperacillin/Tazobactam 3.375 GM in 0.9 % Sodium Chloride Mini Bag 100 ML IVPB SCH ×2 (07:23→15:27)
[2020-06-07] MEDS: lamoTRIgine 100 MG TABLET PO SCH ×2 (07:24→22:19)
[2020-06-07] MEDS: *HR* OxyCODONE/APAP 10/325 TABLET PO PRN ×3 (07:30→22:05)
[2020-06-07] MEDS: Insulin LISPRO 300 UNITS/3 ML VIAL SQ SCH ×4 (08:57→22:08)
[2020-06-07 09:10] LABS: BUN/Creatinine Ratio 16 (6-26); Blood Urea Nitrogen 12 mg/dL (8-23); Calcium 8.2 mg/dL (8.6-10.3); Carbon Dioxide 25 mEq/L (23-29); Chloride 111 mEq/L (98-107); Glucose 96 mg/dL (70-105); Osmolality,Calculated 292 (280-300); Potassium 4.3 mEq/L (3.5-5.1); Sodium 141 mEq/L (136-145); eGFR For African Americans > 60 (> 60); eGFR For Non-African Americans > 60 (> 60)
[2020-06-07] MEDS ORDERED: clonazePAM 1 MG TABLET PO PRN (12:58)
[2020-06-07] MEDS: Ondansetron 4 MG/2 ML VIAL IVP PRN (15:27)
[2020-06-07] MEDS: metroNIDAZOLE 500 MG TABLET PO SCH ×2 (17:37→22:19)
[2020-06-07] MEDS: cefTRIAXone 2,000 MG in 0.9 % Sodium Chloride Mini Bag 100 ML IVPB SCH (17:38)
[2020-06-07] MEDS: FLUoxetine 20 MG CAPSULE PO SCH (22:06)
[2020-06-07] MEDS: Melatonin 3 MG TABLET PO SCH (22:07)
[2020-06-07] MEDS: QUEtiapine Fumarate 100 MG TABLET PO SCH (22:07)
[2020-06-07] MEDS: Gabapentin 300 MG CAPSULE PO SCH (22:07)
[2020-06-08] MEDS: *HR* OxyCODONE/APAP 10/325 TABLET PO PRN ×2 (04:16→16:20)
[2020-06-08 04:55] LABS: Hematocrit 41.8 % (35.3-44.9); Hemoglobin 13.4 g/dL (11.5-15.4); Mean Corpuscular HGB Conc 32.1 g/dL (31.6-35.5); Mean Corpuscular Hemoglobin 30.6 pg (28.0-33.3); Mean Corpuscular Volume 95.4 fL (83.0-100.0); Mean Platelet Volume 10.8 fL (9.4-12.4); Platelet Count 144 K/mcL (140-400); Red Blood Count 4.38 M/mcL (3.82-4.97); White Blood Count 3.9 K/mcL (4.3-11.1)
[2020-06-08] MEDS: *HR* Heparin 5,000 UNIT/ML VIAL SQ SCH ×3 (04:59→20:01)
[2020-06-08 05:00] LABS: BUN/Creatinine Ratio 11 (6-26); Blood Urea Nitrogen 8 mg/dL (8-23); Calcium 8.9 mg/dL (8.6-10.3); Carbon Dioxide 28 mEq/L (23-29); Chloride 106 mEq/L (98-107); Glucose 97 mg/dL (70-105); Osmolality,Calculated 290 (280-300); Potassium 3.8 mEq/L (3.5-5.1); Sodium 141 mEq/L (136-145); eGFR For African Americans > 60 (> 60); eGFR For Non-African Americans > 60 (> 60)
[2020-06-08] MEDS ORDERED: Vancomycin 1,000 MG, 0.9 % Sodium Chloride 1,000 ML IR ONE ×2 (06:00→13:03)
[2020-06-08] MEDS: Insulin LISPRO 300 UNITS/3 ML VIAL SQ SCH ×4 (08:28→20:42)
[2020-06-08] MEDS: BuPROPion XL (24 HR) 150 MG TABLET PO SCH (08:34)
[2020-06-08] MEDS: lamoTRIgine 100 MG TABLET PO SCH ×2 (08:34→19:56)
[2020-06-08] MEDS: allopurinoL 100 MG TABLET PO SCH (08:34)
[2020-06-08] MEDS: Loratadine 10 MG TABLET PO SCH (08:34)
[2020-06-08] MEDS: metroNIDAZOLE 500 MG TABLET PO SCH ×3 (08:34→19:55)
[2020-06-08] MEDS: cefTRIAXone 2,000 MG in 0.9 % Sodium Chloride Mini Bag 100 ML IVPB SCH (08:38)
[2020-06-08] MEDS ORDERED: *HR* Metoprolol 5 MG/5 ML VIAL IVP PRN ×2 (09:38→13:03)
[2020-06-08] MEDS ORDERED: *HR* FentaNYL (PF) 100 MCG/2 ML VIAL IVP PRN ×2 (09:38→13:03)
[2020-06-08] MEDS ORDERED: flumazeniL 0.5 MG/5 ML VIAL IVP PRN ×2 (09:38→13:03)
[2020-06-08] MEDS ORDERED: Naloxone 0.4 MG/ML INJ IVP PRN ×2 (09:38→13:03)
[2020-06-08] MEDS ORDERED: Lidocaine -MPF 2% 2 ML VIAL ONE (10:08)
[2020-06-08] MEDS ORDERED: *HR* FentaNYL (PF) 100 MCG/2 ML VIAL ONE (10:08)
[2020-06-08] MEDS ORDERED: *HR* Propofol 200 MG/20 ML VIAL IVP ONE (10:08)
[2020-06-08] MEDS ORDERED: Ondansetron 4 MG/2 ML VIAL ONE (10:38)
[2020-06-08] MEDS ORDERED: Dexamethasone 4 MG/ML VIAL ONE (10:38)
[2020-06-08] MEDS ORDERED: Acetaminophen IV 1,000 MG/100 ML INFUS..BTL ONE (11:24)
[2020-06-08] MEDS ORDERED: *HR* HYDROMORPHONE 2 MG/ML VIAL ONE (12:12)
[2020-06-08] MEDS ORDERED: Dextrose Gel 15 GM/37.5 ML TUBE PO PRN ×2 (13:03)
[2020-06-08] MEDS ORDERED: clonazePAM 1 MG TABLET PO PRN (13:03)
[2020-06-08] MEDS ORDERED: D5% in Water 1,000 ML IVC PRN (13:03)
[2020-06-08] MEDS ORDERED: Ondansetron 4 MG/2 ML VIAL IVP PRN (13:03)
[2020-06-08] MEDS ORDERED: *HR* Dextrose 50 % in Water (Vial) 50 ML VIAL IVP PRN (13:03)
[2020-06-08] MEDS: QUEtiapine Fumarate 100 MG TABLET PO SCH (19:53)
[2020-06-08] MEDS: FLUoxetine 20 MG CAPSULE PO SCH (19:54)
[2020-06-08] MEDS: Gabapentin 300 MG CAPSULE PO SCH (19:54)
[2020-06-08] MEDS: Melatonin 3 MG TABLET PO SCH (19:56)
[2020-06-08] MEDS: *HR* FentaNYL (PF) 100 MCG/2 ML VIAL IVP PRN (21:35)
[2020-06-09] MEDS: *HR* OxyCODONE/APAP 10/325 TABLET PO PRN ×5 (00:56→23:47)
[2020-06-09 02:58] LABS: BUN/Creatinine Ratio 16 (6-26); Blood Urea Nitrogen 12 mg/dL (8-23); Calcium 8.7 mg/dL (8.6-10.3); Carbon Dioxide 26 mEq/L (23-29); Chloride 105 mEq/L (98-107); Glucose 109 mg/dL (70-105); Osmolality,Calculated 290 (280-300); Potassium 3.6 mEq/L (3.5-5.1); Sodium 140 mEq/L (136-145); eGFR For African Americans > 60 (> 60); eGFR For Non-African Americans > 60 (> 60)
[2020-06-09 03:38] LABS: Hematocrit 37.9 % (35.3-44.9); Hemoglobin 12.2 g/dL (11.5-15.4); Mean Corpuscular HGB Conc 32.2 g/dL (31.6-35.5); Mean Corpuscular Hemoglobin 30.7 pg (28.0-33.3); Mean Corpuscular Volume 95.2 fL (83.0-100.0); Mean Platelet Volume 11.1 fL (9.4-12.4); Platelet Count 136 K/mcL (140-400); Red Blood Count 3.98 M/mcL (3.82-4.97); Red Cell Distribution Width 12.8 % (11.5-14.5); White Blood Count 5.3 K/mcL (4.3-11.1)
[2020-06-09] MEDS: *HR* Heparin 5,000 UNIT/ML VIAL SQ SCH ×3 (06:55→20:38)
[2020-06-09] MEDS: Insulin LISPRO 300 UNITS/3 ML VIAL SQ SCH ×4 (08:00→21:24)
[2020-06-09] MEDS: BuPROPion XL (24 HR) 150 MG TABLET PO SCH (08:10)
[2020-06-09] MEDS: metroNIDAZOLE 500 MG TABLET PO SCH ×3 (08:11→19:51)
[2020-06-09] MEDS: allopurinoL 100 MG TABLET PO SCH (08:11)
[2020-06-09] MEDS: lamoTRIgine 100 MG TABLET PO SCH ×2 (08:12→19:52)
[2020-06-09] MEDS: *HR* FentaNYL (PF) 100 MCG/2 ML VIAL IVP PRN ×4 (08:12→20:38)
[2020-06-09] MEDS: Loratadine 10 MG TABLET PO SCH (08:12)
[2020-06-09] MEDS: cefTRIAXone 2,000 MG in 0.9 % Sodium Chloride Mini Bag 100 ML IVPB SCH (08:13)
[2020-06-09] MEDS: 0.9 % Sodium Chloride 1,000 ML IVC SCH (09:02)
[2020-06-09] MEDS: Melatonin 3 MG TABLET PO SCH (19:48)
[2020-06-09] MEDS: FLUoxetine 20 MG CAPSULE PO SCH (19:49)
[2020-06-09] MEDS: Gabapentin 300 MG CAPSULE PO SCH (19:52)
[2020-06-09] MEDS: QUEtiapine Fumarate 100 MG TABLET PO SCH (19:52)
[2020-06-10] MEDS: *HR* FentaNYL (PF) 100 MCG/2 ML VIAL IVP PRN ×3 (02:31→16:33)
[2020-06-10] MEDS: *HR* Heparin 5,000 UNIT/ML VIAL SQ SCH ×3 (05:19→20:33)
[2020-06-10 05:20] LABS: Hematocrit 40.3 % (35.3-44.9); Hemoglobin 12.8 g/dL (11.5-15.4); Mean Corpuscular HGB Conc 31.8 g/dL (31.6-35.5); Mean Corpuscular Hemoglobin 30.5 pg (28.0-33.3); Mean Platelet Volume 10.5 fL (9.4-12.4); Platelet Count 127 K/mcL (140-400); Red Cell Distribution Width 13.4 % (11.5-14.5); White Blood Count 4.2 K/mcL (4.3-11.1)
[2020-06-10 05:41] LABS: BUN/Creatinine Ratio 16 (6-26); Blood Urea Nitrogen 13 mg/dL (8-23); Calcium 8.6 mg/dL (8.6-10.3); Carbon Dioxide 27 mEq/L (23-29); Chloride 107 mEq/L (98-107); Glucose 116 mg/dL (70-105); Osmolality,Calculated 293 (280-300); Potassium 3.6 mEq/L (3.5-5.1); Sodium 141 mEq/L (136-145); eGFR For African Americans > 60 (> 60); eGFR For Non-African Americans > 60 (> 60)
[2020-06-10] MEDS: *HR* OxyCODONE/APAP 10/325 TABLET PO PRN ×3 (06:56→20:33)
[2020-06-10] MEDS: Insulin LISPRO 300 UNITS/3 ML VIAL SQ SCH ×4 (08:23→20:37)
[2020-06-10] MEDS: allopurinoL 100 MG TABLET PO SCH (08:27)
[2020-06-10] MEDS: BuPROPion XL (24 HR) 150 MG TABLET PO SCH (08:27)
[2020-06-10] MEDS: lamoTRIgine 100 MG TABLET PO SCH ×2 (08:28→20:29)
[2020-06-10] MEDS: metroNIDAZOLE 500 MG TABLET PO SCH ×3 (08:28→20:29)
[2020-06-10] MEDS: cefTRIAXone 2,000 MG in 0.9 % Sodium Chloride Mini Bag 100 ML IVPB SCH (08:28)
[2020-06-10] MEDS: Loratadine 10 MG TABLET PO SCH (08:28)
[2020-06-10] MEDS: FLUoxetine 20 MG CAPSULE PO SCH (20:27)
[2020-06-10] MEDS: Melatonin 3 MG TABLET PO SCH (20:31)
[2020-06-10] MEDS: Gabapentin 300 MG CAPSULE PO SCH (20:32)
[2020-06-10] MEDS: QUEtiapine Fumarate 100 MG TABLET PO SCH (20:32)
[2020-06-11 01:47] LABS: Hematocrit 39.3 % (35.3-44.9); Hemoglobin 12.5 g/dL (11.5-15.4); Mean Corpuscular HGB Conc 31.8 g/dL (31.6-35.5); Mean Corpuscular Hemoglobin 30.9 pg (28.0-33.3); Mean Corpuscular Volume 97.3 fL (83.0-100.0); Mean Platelet Volume 10.7 fL (9.4-12.4); Platelet Count 125 K/mcL (140-400); Red Blood Count 4.04 M/mcL (3.82-4.97); Red Cell Distribution Width 13.3 % (11.5-14.5); White Blood Count 4.2 K/mcL (4.3-11.1)
[2020-06-11 01:52] LABS: BUN/Creatinine Ratio 22 (6-26); Blood Urea Nitrogen 19 mg/dL (8-23); Calcium 8.9 mg/dL (8.6-10.3); Carbon Dioxide 26 mEq/L (23-29); Chloride 107 mEq/L (98-107); Glucose 134 mg/dL (70-105); Osmolality,Calculated 294 (280-300); Potassium 3.6 mEq/L (3.5-5.1); Sodium 140 mEq/L (136-145); eGFR For African Americans > 60 (> 60); eGFR For Non-African Americans > 60 (> 60)
[2020-06-11] MEDS: *HR* Heparin 5,000 UNIT/ML VIAL SQ SCH ×4 (05:19→22:04)
[2020-06-11] MEDS: *HR* OxyCODONE/APAP 10/325 TABLET PO PRN ×3 (05:19→22:01)
[2020-06-11] MEDS: cefTRIAXone 2,000 MG in 0.9 % Sodium Chloride Mini Bag 100 ML IVPB SCH (07:37)
[2020-06-11] MEDS: metroNIDAZOLE 500 MG TABLET PO SCH ×3 (07:37→20:37)
[2020-06-11] MEDS: BuPROPion XL (24 HR) 150 MG TABLET PO SCH (07:38)
[2020-06-11] MEDS: lamoTRIgine 100 MG TABLET PO SCH ×2 (07:39→20:36)
[2020-06-11] MEDS: Loratadine 10 MG TABLET PO SCH (07:39)
[2020-06-11] MEDS: Insulin LISPRO 300 UNITS/3 ML VIAL SQ SCH ×4 (07:40→20:37)
[2020-06-11] MEDS: allopurinoL 100 MG TABLET PO SCH (07:43)
[2020-06-11] MEDS: *HR* FentaNYL (PF) 100 MCG/2 ML VIAL IVP PRN ×2 (08:53→18:01)
[2020-06-11] MEDS: QUEtiapine Fumarate 100 MG TABLET PO SCH (20:36)
[2020-06-11] MEDS: Melatonin 3 MG TABLET PO SCH (20:36)
[2020-06-11] MEDS: Gabapentin 300 MG CAPSULE PO SCH (20:37)
[2020-06-11] MEDS: FLUoxetine 20 MG CAPSULE PO SCH (20:37)
[2020-06-12] MEDS: *HR* Heparin 5,000 UNIT/ML VIAL SQ SCH ×2 (05:33→14:43)
[2020-06-12 05:49] LABS: Basophils % 0.7 %; Eosinophils # 0.1 K/mcL (0.0-0.6); Eosinophils % 3.2 %; Hematocrit 42.1 % (35.3-44.9); Hemoglobin 12.9 g/dL (11.5-15.4); Immature Granulocytes % 2.2 % (0-4); Lymphocytes # 1.5 K/mcL (0.6-4.6); Lymphocytes % 37.3 %; Mean Corpuscular HGB Conc 30.6 g/dL (31.6-35.5); Mean Corpuscular Hemoglobin 29.6 pg (28.0-33.3); Mean Corpuscular Volume 96.6 fL (83.0-100.0); Mean Platelet Volume 10.6 fL (9.4-12.4); Monocytes # 0.3 K/mcL (0.0-1.3); Monocytes % 8.3 %; Platelet Count 138 K/mcL (140-400); Red Blood Count 4.36 M/mcL (3.82-4.97); Red Cell Distribution Width 13.8 % (11.5-14.5); Segmented Neutrophils % 48.3 %; White Blood Count 4.1 K/mcL (4.3-11.1)
[2020-06-12 06:12] LABS: BUN/Creatinine Ratio 20 (6-26); Blood Urea Nitrogen 17 mg/dL (8-23); Calcium 9.2 mg/dL (8.6-10.3); Carbon Dioxide 27 mEq/L (23-29); Chloride 107 mEq/L (98-107); Glucose 121 mg/dL (70-105); Osmolality,Calculated 295 (280-300); Potassium 3.7 mEq/L (3.5-5.1); Sodium 141 mEq/L (136-145); eGFR For African Americans > 60 (> 60); eGFR For Non-African Americans > 60 (> 60)
[2020-06-12] MEDS: *HR* OxyCODONE/APAP 10/325 TABLET PO PRN (06:38)
[2020-06-12] MEDS: Insulin LISPRO 300 UNITS/3 ML VIAL SQ SCH ×2 (08:29→11:33)
[2020-06-12] MEDS: metroNIDAZOLE 500 MG TABLET PO SCH ×2 (09:39→14:43)
[2020-06-12] MEDS: lamoTRIgine 100 MG TABLET PO SCH (09:40)
[2020-06-12] MEDS: Loratadine 10 MG TABLET PO SCH (09:40)
[2020-06-12] MEDS: BuPROPion XL (24 HR) 150 MG TABLET PO SCH (09:41)
[2020-06-12] MEDS: cefTRIAXone 2,000 MG in 0.9 % Sodium Chloride Mini Bag 100 ML IVPB SCH (09:42)
[2020-06-12] MEDS: allopurinoL 100 MG TABLET PO SCH (09:43)
[2020-06-12] MEDS: *HR* OxyCODONE/APAP 5/325 TABLET PO PRN ×2 (11:09→15:47)
[2020-06-12 12:31] LABS: Adenovirus Not Detected (Not Detect); Bordetella Pertussis Not Detected (Not Detect); Chlamydophila pneumoniae Not Detected (Not Detect); Coronavirus 229E Not Detected (Not Detect); Coronavirus HKU1 Not Detected (Not Detect); Coronavirus NL63 Not Detected (Not Detect); Coronavirus OC43 Not Detected (Not Detect); Human Metapneumovirus Not Detected (Not Detect); Human Rhinovirus/Enterovirus Not Detected (Not Detect); Influenza A Subtype 2009 H1 Not Detected (Not Detect); Influenza B Not Detected (Not Detect); Mycoplasma pneumoniae Not Detected (Not Detect); Parainfluenza Virus 1 Not Detected (Not Detect); Parainfluenza Virus 2 Not Detected (Not Detect); Parainfluenza Virus 3 Not Detected (Not Detect); Parainfluenza Virus 4 Not Detected (Not Detect); Respiratory Syncytial Virus Not Detected (Not Detect); SARS-CoV-2 Not Detected (Not Detect)
[2020-06-12 14:25] VITALS: BP 137/79
[2020-06-12] MEDS ORDERED: FLU Vac QV 20-21 (6Month+)/PF 0.5 ML SYRINGE IM ONE (17:11)
== END 2020-06-12 19:11 | disposition other institution (70) | DRG 854 ==
LOC: EMEROOARM 14:10 → 2NNU 22:05 → SUATTDRO 22:05 → 2NNU 23:02 → 3ANU 06-06 14:55
PROVIDERS: ADMIT Internal Medicine; ATTEND Internal Medicine